=== PATIENT | female | born 1955 | race Caucasian/White ===

== ENCOUNTER 2023-05-27 16:30 | Inpatient (IN) | payer MEDICARE, SELFPAY ==
--- NOTE | ~2023-05-27 | XR_ITS ---
EXAM: XR knee RT min 4V DATE: 05/27/2023 22:20 HISTORY: right knee pain, fall . COMPARISON: None available. FINDINGS: Decreased mineralization. No fracture or dislocation. No lytic or blastic lesion. Moderate tricompartmental osteoarthritis. Quadriceps and patellar enthesopathy. No erosion or periosteal galeana ge. Soft tissues within normal limits. IMPRESSION: No acute osseous finding in the right knee. Reviewed, dictated and finalized at location K. GRITY ENGINEER
--- NOTE | ~2023-05-27 | MR_ITS ---
MRI of the brain Clinical History: Altered mental status Technique: Axial and sagittal T1-weighted images were acquired. These were followed by axial T2-weigh [place], diffusion weighted, gradient, and FLAIR images. Following intravenous administration of 20 cc Mu ltiHance gadolinium, T1-weighted fat-sat imaging was performed in the axial and coronal planes. Findings: No significant signal abnormality seen in the referring. No acute infarct, internal hemorrh age, or mass lesion. Ventricles and subarachnoid spaces are unremarkable. Orbits are unremarkable. Paranasal sinuses and m astoid air cells are clear. Major intracranial flow voids are intact. Sagittal midline structures are intact. No abnormal postcontrast enhancement identified. IMPRESSION: No significant abnormality seen. Reviewed, dictated and finalized at location . NESS PERFORMANCE ANALYST
--- NOTE | ~2023-05-27 | CT_ITS ---
EXAMINATION: CT brain wo con DATE: 05/27/2023 21:57 INDICATION: AMS . TECHNIQUE: Computed tomography (CT) of the head was performed without intravenous contrast. The mA wa s adjusted according to patient size. Iterative reconstruction technique was employed. The dose-lengt h product was 605.33 mGy-cm. COMPARISON: None. FINDINGS: No acute intracranial hemorrhage or extra-axial fluid collection. No hydrocephalus, mass, or herniation. No acute ischemic infarct. Unremarkable dural venous sinus attenuation. No acute osseous abnormality. The aerated spaces are clear. Atherosclerotic intracranial calcifications. IMPRESSION: No acute intracranial process. Reviewed, dictated and finalized at location K. TION WORKER
[2023-05-27 17:10] VITALS: BP 175/67; PULSE 80; RESP 16; TEMP 37; O2SAT 94
[2023-05-27 17:10] LABS: Glucose Point of Care 440 mg/dl (65-105)
[2023-05-27 19:11] VITALS: BP 147/78; PULSE 82; RESP 16; O2SAT 94
[2023-05-27 21:19] VITALS: BP 148/89; PULSE 85; RESP 24; O2SAT 98
[2023-05-27 21:35] LABS: Appearance Urine Clear (Clear); Basophils Percent Auto 0.4 % (0.2-1.2); Bilirubin Urine Negative (Negative); Blood Urine Negative (Negative); Color Urine Yellow (Yellow); Eosinophils Absolute Auto 0.1 K/mm3 (0-0.3); Eosinophils Percent Auto 1.5 % (0-4.4); Glucose Urine UA 3+ mg/dL (Negative); Hematocrit 43.1 % (37.0-47.0); Hemoglobin 14.4 g/dL (12.0-15.0); Immature Granulocyte Absolute 0.02 K/mm3 (0.00-0.031); Immature Granulocyte Percent A 0.2 % (0-0.5); Immature Platelet Fraction Pct 8.1 % (0.9-11.2); Ketones Urine Negative (Negative); Leukocyte Esterase Ur Negative LEU/UL (Negative); Lymphocytes Absolute Auto 2.57 K/mm3 (0.9-3.2); Lymphocytes Percent Auto 31.4 % (18.3-44.2); Mean Corpuscular HGB Conc 33.4 g/dl (32-36); Mean Corpuscular Hemoglobin 30.9 pg (26-34); Mean Corpuscular Volume 92.5 fl (80-100); Mean Platelet Volume 11.4 fl (7.4-10.4); Monocytes Absolute Auto 0.6 K/mm3 (0.1-0.6); Monocytes Percent Auto 7.6 % (2.6-8.5); Neutrophils Absolute Auto 4.8 K/mm3 (1.3-6.7); Neutrophils Percent Auto 58.9 % (45.5-73.1); Nitrate Urine Negative (Negative); Platelet Count Result 133 k/mm3 (150-375); Protein Urine Negative (Negative); Red Blood Count 4.66 M/mm3 (4.2-5.4); Red Cell Distribution Width 12.8 % (11.5-14.5); Specific Grav Ur 1.032 (1.001-1.035); Urobilinogen Urine 0.2 mg/dL (<2.0); White Blood Count 8.2 K/mm3 (4.5-10.0); pH Urine 5.5 (5.0-9.0)
[2023-05-27 21:39] LABS: Add Urine Microscopic? NO
[2023-05-27] MEDS: SODIUM CHLORIDE 0.9% IV 1,000 ML 999 ML IV CONT (21:39)
[2023-05-27 21:44] LABS: Alanine Aminotransferase 50 U/L (6-35); Albumin Level 4.2 g/dL (3.5-5.1); Alkaline Phosphatase 98 U/L (38-126); Anion Gap 8 mmol/L (8-16); Aspartate Amino Transferase 58 U/L (14-36); Blood Urea Nitrogen 13 mg/dL (7-17); Calcium 9.5 mg/dL (8.4-10.2); Carbon Dioxide 26 mmol/L (22-30); Chloride 99 mmol/L (98-107); Estimated CRCL calculation 132 ml/min; Estimated Glomerular Filt Rate > 60; Glucose 297 mg/dL (65-110); Magnesium 1.9 mg/dL (1.6-2.3); Potassium 4.3 mmol/L (3.4-5.0); Sodium 133 mmol/L (137-145)
[2023-05-27 21:48] LABS: Beta-Hydroxybutyrate/Acetoacetate 0.07 mmol/L (0.02-0.27)
--- NOTE | 2023-05-27 22:07 | ED.AMS ---
HPI - Altered Mental Status General Chief Complaint: Altered Mental Status <Krista Yoon PA-C - Last Filed: 05/28/23 01:54> Stated Complaint: high BS- altered <CHRIS Moura Last Filed: 05/28/23 01:54> Time Seen by Provider: 05/27/23 21:27 <CHRIS Moura Last Filed: 05/28/23 01:54> Source: patient and family <CHRIS Moura Last Filed: 05/28/23 01:54> Mode of arrival: wheelchair <CHRIS Moura Last Filed: 05/28/23 01:54> Limitations: no limitations <CHRIS Moura Last Filed: 05/28/23 01:54> History of Present Illness HPI narrative: This is a 68 year old female that presents to the ER for altered mental status. Daughters report they found her on the ground at her home. She was very confused. They called EMS who checked her blood sugar and it was very elevated. They sent her in for further evaluation. She is now back at her baseline. Reports right knee pain. Denies fever, chest pain, shortness of breath, abdominal pain, vomiting. <Krista Yoon PA-C - Last Filed: 05/28/23 01:54> Related Data Home Medications: Home Medications Medication Instructions Recorded Confirmed albuterol 90 mcg/actuation aerosol 90 mcg inhalation Q6H PRN 05/28/23 05/28/23 inhaler Shortness Of Breath cetirizine 10 mg tablet 10 mg PO DAILY PRN allergies 05/28/23 05/28/23 cyclobenzaprine 10 mg tablet 10 mg PO TID PRN muscle spasms 05/28/23 05/28/23 escitalopram oxalate 20 mg tablet 20 mg PO DAILY 05/28/23 05/28/23 fluticasone propionate 50 2 spray intranasal DAILY 05/28/23 05/28/23 mcg/actuation nasal spray,suspension insulin glargine 100 unit/mL (3 40 unit subcut QAM 05/28/23 05/28/23 mL) subcutaneous pen (Basaglar KwikPen U-100 Insulin) insulin lispro-aabc 100 unit/mL 10 unit subcut TIDWMEAL 05/28/23 05/28/23 subcutaneous pen (Lyumrodriguev KwgrabielPen U-100 Insulin) levothyroxine 50 mcg tablet 50 mcg PO DAILY 05/28/23 05/28/23 pravastatin 20 mg tablet 20 mg PO DAILY 05/28/23 05/28/23 zolpidem 10 mg tablet 10 mg PO HS PRN Sleep 05/28/23 05/28/23 <Krista Yoon PA-C - Last Filed: 05/28/23 01:54> Allergies/Adverse Reactions: Allergies Allergy/AdvReac Type Severity Reaction Status Date / Time codeine Allergy Unknown Hallucinati Verified 03/09/19 14:39 ons hydromorphone [From Dilaudid] Allergy Hallucinati Verified 05/28/23 02:05 ng losartan Allergy Swelling Verified 05/28/23 02:06 vancomycin Allergy Rash Verified 05/28/23 02:06 metformin AdvReac Diarrhea Verified 05/28/23 02:06 <Krista Yoon PA-C - Last Filed: 05/28/23 01:54> Review of Systems Review of Systems: CONSTITUTIONAL: Denies fever ENT: Denies rhinorrhea, congestion, sore throat CARDIOVASCULAR: Reports edema. Denies chest pain RESPIRATORY: Denies cough or dyspnea. GASTROINTESTINAL: Denies abdominal pain, nausea, vomiting GENITOURINARY: Reports dysuria MUSCULOSKELETAL: Reports joint pain and myalgia. Denies back pain NEUROLOGIC: Denies numbness, or weakness. <Krista Yoon PA-C - Last Filed: 05/28/23 01:54> All systems reviewed & are unremarkable except as noted in HPI and below <CHRIS Moura Last Filed: 05/28/23 01:54> [facility] Past Medical History Medical History: Medical History Dyslipidemia History of diabetes mellitus Hypothyroidism Morbid obesity with BMI of 40.0-44.9, adult Type 2 diabetes mellitus <CHRIS Moura Last Filed: 05/28/23 01:54> Surgical History Surgical History: Surgical History History of abdominal surgery hernia mesh in place and 2 surgeries for MRSA infection <Krista Yoon PA-C - Last Filed: 05/28/23 01:54> Family History Family History: Family History Mother Patient's mother is , Onset Age
[2023-05-27 22:15] LABS: Creatine Kinase 33 U/L (30-135)
[2023-05-27 22:37] VITALS: PULSE 68; RESP 18; O2SAT 97
[2023-05-27 22:40] LABS: Troponin I < 0.012 ng/mL (0.000-0.034)
[2023-05-27 22:41] LABS: Amphetamine Screen Urine Negative (Negative); Barbiturate Screen Urine Negative (Negative); Benzodiazepines Screen Urine Negative (Negative); Cannabinoid Screen Urine Negative (Negative); Cocaine Screen Urine Negative (Negative); Methadone Screen Urine Negative (Negative); Opiate Screen Urine Negative (Negative); Phencyclidine Screen Urine Negative (Negative)
[2023-05-27 22:42] LABS: Influenza A QL RT-PCR Negative (Negative); Influenza B QL RT-PCR Negative (Negative); RSV RNA, RT-PCR Negative (Negative); SARS-CoV-2 RNA PCR Negative (Negative)
[2023-05-27 23:00] VITALS: PULSE 71; RESP 22; O2SAT 100
[2023-05-27 23:12] VITALS: BP 161/78
[2023-05-28] VITALS (10 sets, daily range): BP systolic 125–154; BP diastolic 63–81; PULSE 53–93; RESP 16–23; TEMP 36.2–37; O2SAT 94–100; BMI 41.7
[2023-05-28 01:34] LABS: Glucose Point of Care 311 mg/dl (65-105)
--- NOTE | 2023-05-28 02:04 | ADMGEN ---
This patient, Nelida Judd, was admitted to [address] [place] [address] Room 331-02. Patient/family oriented to hospital policies and general routines including ID bracelet, bed and alarms, visiting hours, pain management, procedures, bathroom and other care routines, personal items, smoking policy, room service/diet, and visiting hours. Information on how to activate the Rapid Response Team has been discussed. Patient/Family are encouraged to report perceived risks to care and to ask questions if they do not understand what they are told or what they should do.
--- NOTE | 2023-05-28 06:00 | ECHO_ITS ---
Patient Info Name: Nelida Judd Age: 68 years : 1955 Gender: Female Ht: 70 in Wt: 288 lbs BSA: 2.60 m2 HR: 76 bpm BP: 154 / 80 mmHg Heart Rhythm: Sinus Rhythm Technical Quality: Good Exam Date: 05/28/2023 11:02 AM Exam Location: Echo Lab Patient Status: Outpatient Admit Date: 05/27/2023 Staff Ordering Physician: Krista Yoon PA-C Entry Specialist: Ingrid Fischer RDCS Attending Provider: Damon Flynn MD Referring Physician: Car BAJWA; Exam Type: CA echo doppler color flow Study Info Indications - AMS, POSSIBLE SYNCOPE Complete two-dimensional, color flow and Doppler transthoracic echocardiogram is performed. Summary 1. Complete two-dimensional, color flow and Doppler transthoracic echocardiogram is performed. 2. Left ventricular chamber dimension is normal. 3. Left ventricular systolic function is normal, estimated at 65-70%. 4. There is mildly increased left ventricular wall thickness. 5. The left ventricular diastolic function is grade I diastolic dysfunction. 6. Right ventricular systolic function is normal. 7. There is trace mitral valve regurgitation. 8. There is trace tricuspid valve regurgitation. 9. There is trivial pericardial effusion. Left Ventricle Left ventricular chamber dimension is normal. Left ventricular systolic function is normal, estimated at 65-70%. There is mildly increased left ventricular wall thickness. The left ventricular diastolic function is grade I diastolic dysfunction. Right Ventricle Right ventricular chamber dimension is normal. Right ventricular systolic function is normal. Left Atria Left atrial chamber dimension is normal. Right Atria Right atrial chamber dimension is normal. Atrial Septum Intact interatrial septum visualized by color flow imaging. Aortic Valve The aortic valve is probable trileaflet. There is no aortic valve stenosis. There is no aortic valve regurgitation. Pulmonic Valve Pulmonary valve is not well visualized. Mitral Valve There is trace mitral valve regurgitation. Tricuspid Valve There is trace tricuspid valve regurgitation. Pericardium/Pleural There is trivial pericardial effusion. Inferior Vena Cava Inferior vena cava is not well visualized. Aorta The aortic root size at the sinus of Valsalva is normal. Left Ventricular Outflow Tract Name Value Normal LVOT 2D LVOT Diameter 2.3 cm LVOT Doppler LVOT Peak Gradient 4 mmHg LVOT Mean Gradient 3 mmHg LVOT VTI 30 cm LVOT VTI/AV VTI Ratio 0.8 LVOT Stroke Volume 126 ml LVOT CO 8.9 l/min LVOT CI 3.4 l/min/m2 Pulmonic Valve Name Value Normal RVOT Doppler RVOT Peak Gradient 2 mmHg PV Doppler
[2023-05-28 08:26] LABS: Glucose Point of Care 327 mg/dl (65-105)
[2023-05-28] MEDS: INSULIN ASPART (*BKC) 100 UNITS/ML SUB-Q ×4 (08:32→20:57)
--- NOTE | 2023-05-28 08:52 | PM.IMHP ---
H&P: HPI History of Present Illness Date/Time: 05/28/23 08:52 Chief Complaint: altered mental status, resolved Narrative: This is a 68-year-old female patient history of insulin-dependent diabetes who was found down on the ground with altered mentation yesterday evening. The last thing patient can remember is around 1:30 in the afternoon Yesterday she went to take her dishes to the kitchen. The next thing she remembers is she is with healthcare team. EMS found blood sugar over 500 on evaluation. Patient was transported to the emergency department where her blood sugar was 470. She received IV fluids and an altered mental status workup. Patient returned to baseline mental status while in the ER but continued to have unsteady ambulation. CT of the brain was unremarkable. Labs revealed mild hyponatremia 133 and elevated glucose, which actually places sodium in normal range at 138 when corrected for glucose. UA remarkable only for urine glucose, UDS negative, viral panel negative. This morning patient reports that she has a headache and there is a small abrasion to the left mandaen area indicating that she had some minor head injury related to presumed syncopal episode. Uncertain if the altered mental status and gait abnormality were related to concussion or other process. on admission MRI was ordered of the brain. This too results unremarkable. Patient is ambulatory with steady gait at this time and aside from the headache feels back to her normal self. On review of systems patient reports that she has had chronic lower abdominal pain for years that is presumed related to mesh and scar tissue. 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 Patient reports that she has not been very compliant with her insulin until the last 3-4 weeks. However, she does not understand why her glucose was over 500 at home. Otherwise prior to event patient stated that she felt completely normal and well. No recent illnesses. No dysuria. No fever chills. No chest pain or shortness of breath. Review of Systems Review of Systems: All systems reviewed & are unremarkable except as noted in HPI and below PMFSH Past Medical History Medical History Dyslipidemia History of diabetes mellitus Hypothyroidism Morbid obesity with BMI of 40.0-44.9, adult Type 2 diabetes mellitus Surgical History Surgical History History of abdominal surgery hernia mesh in place and 2 surgeries for MRSA infection Family History Family History Mother Patient's mother is , Onset Age: 83 Family history of atrial fibrillation Father Patient's father is , Onset Age: 56 Carcinoma of colon Other Diabetes mellitus Social History Social History Smoking status: Never smoker Alcohol intake: never Substance use: never Substance use type: does not use Lack of Transportation: No Lack of Food: Never True Current Housing: I Have Housing Concerned About Future Housing: No Difficulty Paying Gas/Electric Bills: No Difficulty Paying for Meds: No Currently Unemployed: No Education: High School Diploma/GED Difficulty w/ Childcare or Family Care: No Spiritual care concerns: No Meds Home Medications and Allergies Home Medications Medication Instructions Recorded Confirmed Type albuterol 90 mcg/actuation aerosol 90 mcg inhalation Q6H PRN 05/28/23 05/28/23 History inhaler Shortness Of Breath cetirizine 10 mg tablet 10 mg PO DAILY PRN allergies 05/28/23 05/28/23 History cyclobenzaprine 10 mg tablet 10 mg PO TID PRN muscle spasms 05/28/23 05/28/23 History escitalopram oxalate 20 mg tablet 20 mg PO DAILY 05/28/23 05/28/23 History fluticasone propionate 50 2 spra
[2023-05-28] MEDS: PRAVASTATIN SODIUM 20 MG TABLET PO (09:28)
[2023-05-28] MEDS: ESCITALOPRAM OXALATE 10 MG TABLET 20 MG PO (09:31)
[2023-05-28] MEDS: LEVOTHYROXINE SODIUM 50 MCG TABLET PO (09:31)
[2023-05-28] MEDS: FLUTICASONE PROPIONATE 0.05% NA SPR 16 GM BTL (*BKC) 2 SPRAY NASAL (09:32)
[2023-05-28] MEDS: INSULIN GLARGINE (*BKC) 100 UNITS/ML 40 UNITS SUB-Q (09:33)
--- NOTE | 2023-05-28 09:59 | ECG_ITS ---
Measurements Intervals [place] Rate: 82 P: 77 IN: 177 QRS: 29 QRSD: 144 T: -22 QT: 422 QTc: 495 Interpretive Statements SINUS RHYTHM RIGHT BUNDLE BRANCH BLOCK [120+ ms QRS DURATION, UPRIGHT V1, 40+ ms S IN I/aVL/V4/V5/V6] MODERATE T-WAVE ABNORMALITY, CONSIDER LATERAL ISCHEMIA [-0.1+ mV T WAVE IN I/aVL/V5/V6] NO PREVIOUS ECG AVAILABLE FOR COMPARISON Electronically Signed On 05-28-2023 19:12:07 [employer] FLORIST by Cadence Gipson M.D.
[2023-05-28 10:50] LABS: Hemoglobin A1C 9.8 % (<5.7)
[2023-05-28 11:37] LABS: Alanine Aminotransferase 43 U/L (6-35); Albumin Level 3.5 g/dL (3.5-5.1); Alkaline Phosphatase 90 U/L (38-126); Anion Gap 4 mmol/L (8-16); Aspartate Amino Transferase 54 U/L (14-36); Bilirubin,Total 0.8 mg/dL (0.2-1.3); Blood Urea Nitrogen 13 mg/dL (7-17); Calcium 9.1 mg/dL (8.4-10.2); Carbon Dioxide 31 mmol/L (22-30); Chloride 101 mmol/L (98-107); Creatine Kinase 22 U/L (30-135); Estimated CRCL calculation 100 ml/min; Estimated Glomerular Filt Rate > 60; Glucose 337 mg/dL (65-110); Magnesium 1.8 mg/dL (1.6-2.3); Potassium 4.7 mmol/L (3.4-5.0); Sodium 136 mmol/L (137-145)
[2023-05-28] MEDS: ACETAMINOPHEN 500 MG TABLET 1000 MG PO ×2 (11:43→20:57)
[2023-05-28 11:48] LABS: Troponin I < 0.012 ng/mL (0.000-0.034)
[2023-05-28 12:10] LABS: Glucose Point of Care 308 mg/dl (65-105)
[2023-05-28 14:50] LABS: Glucose Point of Care 338 mg/dl (65-105)
[2023-05-28 17:21] LABS: Glucose Point of Care 277 mg/dl (65-105)
[2023-05-28] MEDS: INSULIN ASPART (*BKC) 100 UNITS/ML 10 UNITS SUB-Q (17:35)
[2023-05-28] MEDS: LACTATED RINGERS 1,000 ML 100 ML IV CONT (17:36)
[2023-05-28 21:05] LABS: Glucose Point of Care 220 mg/dl (65-105)
[2023-05-29] VITALS: PULSE 68
[2023-05-29 04:00] VITALS: PULSE 68
[2023-05-29 04:45] VITALS: BP 119/49; PULSE 65; RESP 20; TEMP 36.3; O2SAT 94
[2023-05-29] MEDS: LEVOTHYROXINE SODIUM 50 MCG TABLET PO (05:39)
[2023-05-29 07:03] LABS: Basophils Percent Auto 0.4 % (0.2-1.2); Eosinophils Absolute Auto 0.2 K/mm3 (0-0.3); Eosinophils Percent Auto 2.8 % (0-4.4); Hematocrit 37.8 % (37.0-47.0); Hemoglobin 12.3 g/dL (12.0-15.0); Immature Granulocyte Absolute 0.02 K/mm3 (0.00-0.031); Immature Granulocyte Percent A 0.3 % (0-0.5); Immature Platelet Fraction Pct 11.1 % (0.9-11.2); Lymphocytes Percent Auto 48.1 % (18.3-44.2); Mean Corpuscular HGB Conc 32.5 g/dl (32-36); Mean Corpuscular Hemoglobin 31.1 pg (26-34); Mean Corpuscular Volume 95.5 fl (80-100); Mean Platelet Volume 12.2 fl (7.4-10.4); Monocytes Absolute Auto 0.4 K/mm3 (0.1-0.6); Monocytes Percent Auto 5.9 % (2.6-8.5); Neutrophils Absolute Auto 3.1 K/mm3 (1.3-6.7); Neutrophils Percent Auto 42.5 % (45.5-73.1); Platelet Count Result 91 k/mm3 (150-375); Red Blood Count 3.96 M/mm3 (4.2-5.4); Red Cell Distribution Width 12.7 % (11.5-14.5); White Blood Count 7.3 K/mm3 (4.5-10.0)
[2023-05-29 07:24] LABS: Chloride 104 mmol/L (98-107)
[2023-05-29 07:32] LABS: Alanine Aminotransferase 40 U/L (6-35); Albumin Level 3.1 g/dL (3.5-5.1); Alkaline Phosphatase 81 U/L (38-126); Anion Gap 6 mmol/L (8-16); Aspartate Amino Transferase 46 U/L (14-36); Blood Urea Nitrogen 13 mg/dL (7-17); Calcium 8.4 mg/dL (8.4-10.2); Carbon Dioxide 26 mmol/L (22-30); Estimated CRCL calculation 164 ml/min; Estimated Glomerular Filt Rate > 60; Glucose 145 mg/dL (65-110); Potassium 3.7 mmol/L (3.4-5.0); Sodium 136 mmol/L (137-145)
[2023-05-29 07:49] LABS: Glucose Point of Care 170 mg/dl (65-105)
[2023-05-29 08:00] VITALS: PULSE 75
[2023-05-29] MEDS: ESCITALOPRAM OXALATE 10 MG TABLET 20 MG PO (09:40)
[2023-05-29] MEDS: PRAVASTATIN SODIUM 20 MG TABLET PO (09:41)
[2023-05-29] MEDS: INSULIN ASPART (*BKC) 100 UNITS/ML 10 UNITS SUB-Q ×2 (09:44→13:04)
[2023-05-29] MEDS: INSULIN GLARGINE (*BKC) 100 UNITS/ML 40 UNITS SUB-Q (09:45)
[2023-05-29] MEDS: FLUTICASONE PROPIONATE 0.05% NA SPR 16 GM BTL (*BKC) 2 SPRAY NASAL (09:47)
[2023-05-29 10:50] VITALS: BMI 41.9
[2023-05-29 11:41] LABS: Glucose Point of Care 230 mg/dl (65-105)
[2023-05-29 12:00] VITALS: PULSE 65
--- NOTE | 2023-05-29 12:15 | PM.DS ---
DS: Admitting Diagnosis Discharge Date 05/29/2023 Admitting Diagnosis transient altered awareness, type 2 diabetes mellitus, hypothyroidism, concussion DS: Discharge Diagnosis Discharge Diagnosis (1) Altered awareness, transient: Code(s): R40.4 - Transient alteration of awareness Status: Acute (2) Concussion: Code(s): S06.0XAA - Concussion with loss of consciousness status unknown, initial encounter Status: Acute (3) Type 2 diabetes mellitus: Qualifiers: Diabetes mellitus oysterman insulin use: with usp use Diabetes mellitus complication status: with hyperglycemia Qualified Code(s): E11.65 - Type 2 diabetes mellitus with hyperglycemia; Z79.4 - extermination supervisor (current) use of insulin Code(s): E11.9 - Type 2 diabetes mellitus without complications Status: Acute (4) Hypothyroidism: Code(s): E03.9 - Hypothyroidism, unspecified Status: Chronic DS: Summary Hospital Course Reason for hospitalization: altered mental status, hyperglycemia Hospital Course: 05/28: This is a 68-year-old female patient history of insulin-dependent diabetes who was found down on the ground with altered mentation yesterday evening.? The last thing patient can remember is around 1:30 in the afternoon ? Yesterday she went to take her dishes to the kitchen.? The next thing she remembers is she is with healthcare team.? EMS found blood sugar over 500 on evaluation.? Patient was transported to the emergency department where her blood sugar was 470.? She received IV fluids and an altered mental status workup.? Patient returned to baseline mental status while in the ER but continued to have unsteady ambulation.? CT of the brain was unremarkable.? Labs revealed mild hyponatremia 133 and elevated glucose, which actually places sodium in normal range at 138 when corrected for glucose. UA remarkable only for urine glucose, UDS negative, viral panel negative.? This morning patient reports that she has a headache and there is a small abrasion to the left sabianist area indicating that she had some minor head injury related to presumed syncopal episode.? Uncertain if the altered mental status and gait abnormality were related to concussion or other process. on admission MRI was ordered of the brain.? This too results unremarkable.? Patient is ambulatory with steady gait at this time and aside from the headache feels back to her normal self.? On review of systems patient reports that she has had chronic lower abdominal pain for years that is presumed related to mesh and scar tissue.? 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 Patient reports that she has not been very compliant with her insulin until the last 3-4 weeks.? However, she does not understand why her glucose was over 500 at home.? Otherwise prior to event patient stated that she felt completely normal and well.? No recent illnesses.? No dysuria.? No fever chills.? No chest pain or shortness of breath. 05/29: patient refused home healthcare being established, refused perinatal educator and refused PT/OT. Patient back to normal mental status. She had no ongoing complaints. Her hyperglycemia had improved dramatically. Patient has long-acting and short-acting insulin along with dosing instructions for home. Echocardiogram was completed with normal ejection fraction mild left ventricular wall thickness and grade 1 diastolic dysfunction, trace mitral valve regurgitation trace tricuspid valve regurgitation and trivial pericardial effusion none of which would explain her altered mental status. Suspect that this was related to concussion. Status at Discharge Cognitive/behavioral status at discharge: Awake alert oriented Functional status at discharge: independent ambulation Overall status at discharge: patient is back to baseline Time Spent with Patient Time attestation: Total time spent providing and/or coordinating discharge ser
[2023-05-29] MEDS: INSULIN ASPART (*BKC) 100 UNITS/ML SUB-Q (13:02)
[2023-05-29 14:00] VITALS: BP 137/67; PULSE 78; RESP 16; TEMP 36.6; O2SAT 96
--- NOTE | 2023-05-29 16:58 | PC.NURSE ---
Pt was being prepared for discharge with IV and tele removal. Pharmacy verified. Before, this RN and orientee could discuss discharge paperwork with pt, pt's ride arrived and she left. This RN called pt cellphone and spoke with caregiver. Then pt called back to floor and this RN spoke with her regarding discharge instructions. Family came up to 3[facility] and picked up discharge packet. Advised family/pt to call if they had any additional questions or concerns.
== END 2023-05-29 15:05 | disposition home or self-care (01) | DRG 89 ==
LOC: ANHED 22:22 → ANH3MEDSUR 05-28 00:19
PROVIDERS: Admitting Provider Internal Medicine; Emergency Provider Physician Assistant; Visit Provider Nurse Practitioner
DX: S06.0XAA Concussion with loss of consciousness status unknown, initial encounter (principal); E87.1 Hypo-osmolality and hyponatremia; Z68.41 Body mass index [BMI] 40.0-44.9, adult; R55 Syncope and collapse; E11.65 Type 2 diabetes mellitus with hyperglycemia; E03.9 Hypothyroidism, unspecified; E78.5 Hyperlipidemia, unspecified; E66.01 Morbid (severe) obesity due to excess calories; S00.81XA Abrasion of other part of head, initial encounter; W19.XXXA Unspecified fall, initial encounter; Z20.822 Contact with and (suspected) exposure to COVID-19; Z79.4 Long term (current) use of insulin
CPT/HCPCS: 36415; 70450; 70553; 73564; 80053; 80307; 81003; 82010; 82550; 82948; 83036; 83735; 84100; 84443; 84484; 85025; 85055; 87637; 93005; 93306; 96360; 96361; 99285; A9270; A9577; G0378; J1815; J7030; J7120

== ENCOUNTER 2024-10-13 15:50 | Emergency (ER) | payer MEDICARE, SELFPAY ==
--- NOTE | ~2024-10-13 | XR_ITS ---
3 VIEWS NASAL BONES Ordering provider: Debbi Ramirez NP History: . fall . Comparison: None. FINDINGS: Nasal bone fractures. The nasal septum is slightly deviated to the right. Soft tissues are normal. IMPRESSION: Nasal bone fractures. Reviewed, dictated and finalized at location A. IMPRESSION: Nasal bone fractures.
[2024-10-13 16:08] VITALS: BP 143/60; PULSE 78; RESP 20; TEMP 36.3; O2SAT 96
--- NOTE | 2024-10-13 16:42 | ED_ITS ---
HPI - Fall General Chief Complaint: Fall Stated Complaint: fall Time Seen by Provider: 10/13/24 16:30 Source: patient Mode of arrival: ambulatory Limitations: no limitations History of Present Illness HPI Narrative: 69 year old female accompanied by grand daughter with complaints of injury to her nose from injury she sustained when she was trying to move trash can out of the way so family could mow. Patient reports that she tripped while pushing can and hit her nose on edge of trash can and then fell in the grass. Patient reports that she did have bloody nose after incident denies any LOC at time of injury. Patient has redness and swelling to her nose with small abrasion noted at bridge of her nose with no acute bleeding noted. Patient reports that she does not have any other noted injuries and takes no daily blood thinners. MD complaint: fall Onset (ago): hour(s) (within prior hour before arrival) Fall from: standing Place fall occurred: home Loss of consciousness: none Symptoms prior to fall: none Location of injury: face Severity scale (1-10): 10 Quality: throbbing (nose) Associated symptoms (after fall): other (bloody nose) Related Data Home Medications ?Medication ?Instructions ?Recorded ?Confirmed ?Last Taken ?Type albuterol 90 mcg/actuation aerosol 90 mcg inhalation Q6H PRN 05/28/23 05/28/23 Unknown History inhaler Shortness Of Breath cetirizine 10 mg tablet 10 mg PO DAILY PRN allergies 05/28/23 05/28/23 Unknown History escitalopram oxalate 20 mg tablet 20 mg PO DAILY 05/28/23 05/28/23 05/27/23 History fluticasone propionate 50 2 spray intranasal DAILY 05/28/23 05/28/23 05/27/23 History mcg/actuation nasal spray,suspension insulin glargine 100 unit/mL (3 40 unit subcut QAM 05/28/23 05/28/23 Unknown History mL) subcutaneous pen (Basaglar KwikPen U-100 Insulin) insulin lispro-aabc 100 unit/mL 10 unit subcut TIDWMEAL 05/28/23 05/28/23 05/27/23 History subcutaneous pen (Lyumjev KwikPen U-100 Insulin) levothyroxine 50 mcg tablet 50 mcg PO DAILY 05/28/23 05/28/23 05/27/23 History pravastatin 20 mg tablet 20 mg PO DAILY 05/28/23 05/28/23 05/27/23 History zolpidem 10 mg tablet 10 mg PO HS PRN Sleep 05/28/23 05/28/23 Unknown History Allergies Allergy/AdvReac Type Severity Reaction Status Date / Time codeine Allergy Unknown Hallucinati Verified 10/13/24 16:43 ons hydromorphone (From Dilaudid) Allergy Hallucinati Verified 10/13/24 16:43 ng losartan Allergy Swelling Verified 10/13/24 16:43 vancomycin Allergy Rash Verified 10/13/24 16:43 metformin AdvReac Diarrhea Verified 10/13/24 16:43 Review of Systems Review of Systems: CONSTITUTIONAL: Denies fever, chills, or sweats. EYES: Denies visual changes, redness, or discharge. ENT: Reports some rhinorrhea, and feelings of congestion in nose with swelling and pain to her nose, no sore throat, or otalgia. CARDIOVASCULAR: Denies chest pain, palpitations, or edema. RESPIRATORY: Denies cough or dyspnea. GASTROINTESTINAL: Denies abdominal pain, nausea, vomiting, or diarrhea. GENITOURINARY: Denies dysuria or hematuria. SKIN: Denies rash or itching.small abrasion to bridge of nose MUSCULOSKELETAL: Denies back pain, joint pain, or myalgia. NEUROLOGIC: Denies headache, numbness, or weakness. PSYCHIATRIC: Report history of anxiety or depression. All systems reviewed & are unremarkable except as noted in HPI and below PMFSH Past Medical History Medical History Dyslipidemia History of diabetes mellitus Hypothyroidism Morbid obesity with BMI of 40.0-44.9, adult Type 2 diabetes mellitus Surgical History Surgical History History of abdominal surgery hernia mesh in place and 2 surgeries for MRSA infection Family History Family History Mother Patient's mother is , Onset Age: 83 Family history of atrial fibrillation Father Patient's father is , Onset Age: 56 Carcinoma of colon Other Diabetes mellitus Social History Social History Smoking status: Never smoker Alcohol intake: never Substance use: never Substance use type: does not use Do You Feel Safe in your Home?: Yes Lack of Transportation: No Lack of Food: Never True Current Housing: I Have Housing Concerned About Future Housing: No Difficulty Paying Gas/Electric Bills: No Difficulty Paying for Meds: No Currently Unemployed: No Education: High School Diploma/GED Difficulty w/ Childcare or Family Care: No Spiritual care concerns: No Comments At time of signature, agree with nursing past medical, surgical, social and family history. There is no relevant family history pertinent to the presenting complaint Exam Narrative: GENERAL: Well-appearing, well-nourished, obese and in no acute distress. HEAD: Normocephalic, atraumatic. EYES: PERRLA and EOMI. some faint bruising to eyelid noted no sharp pain to eyes or any change in vision ENT: Nares clear, clear rhinorrhea no present epistaxis reports did have bloody nose after incident. Mucous membranes moist.TM's normal throat pink with no swelling. Swelling and some redness to nose with pain NECK: Supple.no lymphadenopathy CHEST: Clear to auscultation. No respiratory distress. no cough noted SAO2 96% on room air HEART: Regular rate and rhythm. No murmur heard. Normal peripheral pulses. ABDOMEN: Soft, nontender, nondistended, normal active bowel sounds. EXTREMITIES: Normal range of motion. No edema. SKIN: Warm, dry, no rash.small abrasion to the bridge of nose some bruising noted to eyelids NEURO: No focal deficits. Alert and oriented x3. denies any LOC at time of injury Course Course Emergency Course: Patient is aware of diagnosis, understands and agrees to treatment plan.? Anticipatory guidance given.? Patient agrees to follow-up as directed and is aware of reasons to seek care at the emergency department. Portions of this record may have been created with voice recognition software Level of Care: Express Care Visit Vital Signs Vital signs: Vital Signs Temperature 36.3 C L 10/13/24 16:08 Pulse Rate 78 10/13/24 16:08 Respiratory Rate 20 10/13/24 16:08 Blood Pressure 143/60 H 10/13/24 16:08 Pulse Oximetry 96 10/13/24 16:08 Oxygen Delivery Room Air 10/13/24 16:08 Temperature 36.3 C L 10/13/24 16:08 Pulse Rate 78 10/13/24 16:08 Respiratory Rate 20 10/13/24 16:08 Blood Pressure 143/60 H 10/13/24 16:08 Pulse Oximetry 96 10/13/24 16:08 Oxygen Delivery Room Air 10/13/24 16:08 Reviewed MDM - Fall Differential Diagnosis Differential diagnosis: Likely other (facial contusion, nasal contusion, nasal fracture, fall hitting nose) Medical Records Attestation: I reviewed the patient's medical records. Imaging Data Attestation: I personally reviewed and interpreted this imaging study as foll ows: My impression: nasal bone fracture, septum deviated slightly to right, soft tissues normal Radiologist's impression: [facility] [address] [place] [id number] XRay Report Signed Patient: Nelida Judd : 1955 MR#: [id number] Age: 69 Acct:[id number] Loc: [facility] ADM Date: 10/13/24Attending Dr: Ordering Physician: Debbi Ramirez APRN Date of Service: 10/13/24 Procedure(s): XR nasal bones min 3V Accession Number(s): [id number] cc: Asiya, Haris LOMELI; Debbi Ramirez APRN~ 3 VIEWS NASAL BONES Ordering provider: Debbi Ramirez NP History: . fall . Comparison: None. FINDINGS: Nasal bone fractures. The nasal septum is slightly deviated to the right. Soft tissues are normal. IMPRESSION: Nasal bone fractures. Reviewed, dictated and finalized at location A. Please be advised this is a medical document. It is intended for [id number] communication. It is written in medical language and may contain unfamiliar abbreviations or verbiage. Medical documents are intended to carry relevant information, facts as evident, and the clinical opinion of the practitioner at the time of the encounter. This report may have been done utilizing a voice recognition system. Attempts have been made to correct errors. However, there may be uncorrected grammatical, spelling, and recognition errors present. The file time of this note does not necessarily represent the time of service. Dictated By: Erasmo Vazuqez MD 10/13/24 1712 Signed By: <Electronically signed by Erasmo Vazquez MD in OV> Critical Care Time Critical Care Time Critical Care Time: No Discharge Plan Discharge Clinical Impression: Facial bruising Qualifiers: Encounter type: initial encounter Qualified Code(s): S00.83XA - Contusion of other part of head, initial encounter Fracture, nasal Qualifiers: Encounter type: initial encounter Fracture type: closed Qualified Code(s): S02.2XXA - Fracture of nasal bones, initial encounter for closed fracture Patient Disposition: Home Condition: Stable Instructions: Antibiotic Form, Nasal Fracture (ED) Additional Instructions: apply bacitracin ointment to abrasion on bridge of nose. watch for any infection--redness, swelling, drainage from abrasion on nose Tylenol or Ibuprofen for any fever or pain follow up with PCP in 7-10 days for a wound check recheck if develop fever, chills, increasing symptom Go to the ER if your symptoms become worse of if ANY new symptoms develop Ice to facial area 20 minutes Follow up with your PCP in 7-10 days if follow up needed PCP can refer to ENT If your symptoms persist, change or worsen significantly before you can contact your personal physician then please, without delay, go to the emergency department for further evaluation. Follow-up with PCP in 7-10 days or sooner if needed Follow up with PCP soon in regards to your blood pressure which is elevated above threshold for referral. Blood pressure above 120/80 may indicate pre- hypertension. Patient Language: Lao Prescriptions: No Action cetirizine 10 mg tablet 10 mg PO DAILY PRN (Reason: allergies) levothyroxine 50 mcg tablet 50 mcg PO DAILY pravastatin 20 mg tablet 20 mg PO DAILY albuterol 90 mcg/actuation Aerosol 90 mcg INHALATION Q6H PRN (Reason: Shortness Of Breath) Rx Instructions: 2 puffs zolpidem 10 mg tablet 10 mg PO HS PRN (Reason: Sleep) fluticasone propionate 50 mcg/actuation [place],Suspension 2 spray INTRANASAL DAILY escitalopram oxalate 20 mg tablet 20 mg PO DAILY Lyumjev KwikPen U-100 Insulin 100 unit/mL insulin pen 10 unit SUBCUT TIDWMEAL insulin glargine [Basaglar KwikPen U-100 Insulin] 100 unit/mL (3 mL) Insulin Pen 40 unit SUBCUT QAM acetaminophen 500 mg Tablet 1,000 mg PO Q6H PRN (Reason: Pain Or Fever) Qty: 0 0RF Follow-up/Referrals: Asiya,MD Haris [Primary Care Provider] - Time of Disposition: 17:39 Quality [place] Coma Scale Eyes: Open Verbal: Oriented and Alert Motor: Follows Commands [place] Coma Total Score: 15
--- OUTSIDE RECORDS SUMMARY | 2024-10-13 17:03 | XMS_ITS | Clinical Summary ---
Author Organization [facility] Address [address] [place] [address] Care Team Providers Care Bottom Steep Tender Name Role Phone Michael Bedoya MD Unavailable [phone] Jag Andres MD Unavailable [phone] Berenice Rowan MD Unavailable Brandee Ahn NP Primary Care Provider [phone] Allergies Active Allergy Reactions Criticality Noted Date Comments Codeine Hallucinations Medium Hydromorphone Hallucinations Medium 03/22/2018 Hydromorphone Hcl Hallucinations Medium 03/07/2021 Losartan Swelling,Vision changes,Dizziness Medium 09/15/2022 Metformin Diarrhea Low 06/18/2022 Vancomycin Itching,Redness,Rash Medium 03/25/2018 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 Medications albuterol HFA (PROVENTIL HFA,VENTOLIN HFA,PROAIR HFA) 90 mcg/actuation inhaler Inhale 2 puffs every 6 (six) hours as needed for wheezing 1 each 1 2 Active fluticasone propionate (FLONASE) 50 mcg/actuation nasal sprayIndications :Acute recurrent pansinusitis Administer 2 sprays into each nostril daily 3 each 4 2 Active blood glucose diagnostic (glucose blood) stripIndications :Type 2 diabetes mellitus with hyperglycemia, without long-term current use of insulin ([facility]) Check blood sugar 3x times a day E11.65 100 each 5 3 Active blood-glucose meter kitIndications:T ype 2 diabetes mellitus with hyperglycemia, without long-term current use of insulin ([facility]) Use to test blood sugars 3 times daily e11.65 1 kit 1 3 Active pen needle, diabetic (1st Tier Unifine Pentips Plus) 31 gauge x 3/16 needleIndication s:Type 2 diabetes mellitus with hyperglycemia, without long-term current use of insulin ([facility]) USE TO INJECT insulin 4 TIMES A DAY e11.65 300 each 3 3 Active QUEtiapine (SEROquel) 25 mg tabletIndication s:Psychophysiolo gical insomnia Take 1-2 tablets (25-50 mg total) by mouth nightly 180 tablet 4 025 Active cetirizine (ZyrTEC) 10 mg tabletIndication s:Allergic rhinitis, unspecified seasonality, unspecified trigger Take 1 tablet (10 mg total) by mouth daily as needed for allergies 90 tablet 4 4 025 Active ALPRAZolam (XANAX) 0.25 mg tabletIndication s:Insomnia Take 1 tablet (0.25 mg total) by mouth nightly as needed for anxiety 30 tablet 4 Active cyclobenzaprine (FLEXERIL) 10 mg tabletIndication s:Muscle spasm of back Take 1 tablet (10 mg total) by mouth 3 (three) times a day as needed for muscle spasms 270 tablet 1 5 025 Active levothyroxine (SYNTHROID) 50 mcg tabletIndication s:Hypothyroidism , unspecified type Take 1 tablet (50 mcg total) by mouth daily 90 tablet 3 5 026 Active pravastatin (PRAVACHOL) 20 mg tabletIndication s:Dyslipidemia associated with type 2 diabetes mellitus (HCC) Take 1 tablet (20 mg total) by mouth daily 90 tablet 3 5 Active naloxone (NARCAN) 4 mg/actuation spray,non-aeroso l Administer 1 spray into affected nostril(s) as needed for opioid reversal or respiratory depression Call 911. Administer a single spray in one nostril. Repeat every 3 minutes as needed if no or minimal response. 2 each 5 Active Additional Information Patient not taking.Reported on 10/08/2024 escitalopram (LEXAPRO) 20 mg tabletIndication s:Moderate episode of recurrent major depressive disorder (HCC) Take 1 tablet (20 mg total) by mouth daily 90 tablet 1 5 Active Additional Information Patient not taking.Reported on 10/08/2024 insulin glargine (BASAGLAR) 100 unit/mL (3 mL) pen for injectionIndicat ions:Type 2 diabetes mellitus with hyperglycemia, without long-term current use of insulin (HCC) Inject 30 Units under the skin daily 30 mL 4 5 Active insulin lispro-aabc (LYUMJEV) 100 unit/mL pen for injection Inject 10 Units under the skin 3 (three) times a day before meals 30 mL 4 5 Active amoxicillin-clav ulanate (AUGMENTIN) 875-125 mg per tabletIndication s:Acute bacterial sinusitis Take 1 tablet by mouth 2 (two) times a day for 10 days 20 tablet 5 025 Active oxyCODONE (ROXICODONE) 5 mg immediate release tablet Take 1 tablet (5 mg total) by mouth every 4 (four) hours as needed for pain 30 tablet 5 025 Active Problems Problem Noted Date Diagnosed Date Moderate episode of recurrent major depressive d isorder 05/17/2024 Assessment & Plan (05/17/2024 11:07 AM RETAIL STOCK CLERK): Moods well controlled and stable. Will continue on Seroquel and Lexapro. Will continue to monitor. Interstitial cystitis 01/11/2024 Assessment & Plan (01/11/2024 1:50 PM CDT): Seeing urology at [facility] Having bladder intillations Syncope and collapse 06/03/2023 Assessment & Plan (06/03/2023 3:23 PM RETAIL STOCK CLERK): Found unresponsive on 05/27 where her blood glucose was 501. Transferred to [place] where she spend 2 nights Appt with endo on 07/08 to discuss continuous glucose monitor Followed by endo-currently on Lyumjev and Basaglar Muscle spasm of back 05/05/2023 Assessment & Plan (05/17/2024 11:07 AM RETAIL STOCK CLERK): Will continue with Cyclobenzaprine PRN. Reports spasm the other day that wrapped around to chest when walking up slight incline. Will continue to monitor and discussed red flags and when to go to ER and RTC. Assessment & Plan (01/11/2024 1:51 PM CDT): Chronic, generally well controlled Flexeril 10 mg as needed COVID-19 01/10/2022 Assessment & Plan (01/10/2022 12:45 PM CDT): VS stable, no acute distress. Symptoms improving. Completing paxlovid, has 2 more days. Discussed symptomatic treatment, acetaminophen, nasal irrigation. Encouraged continued use of albuterol inhaler as needed. Will notify office for any new/worsening symptoms. Reviewed red flags warranting ER evaluation. Encounter for osteoporosis s creening in asymptomatic postmenopausal patient 10/11/2021 Assessment & Plan (10/11/2021 11:37 AM CDT): Call to schedule dexa. Assessment & Plan (10/11/2021 9:16 AM CDT): Patient is outstanding order for DEXA scan, aware to call and schedule testing. Medicare annual wellness visit, subsequent 10/11 Assessment & Plan (05/17/2024 11:06 AM RETAIL STOCK CLERK): In regard to health maintenance, Colonoscopy- Declined Mammogram- Declined DEXA- UTD DM-annual visual examination and podiatry visits every 3 months advised. Influenza vaccine- Declined Pneumococcal vaccine- Declined Shingrix vaccine- Declined ASCVD risk: 13.8% Eat a healthy diet: focus on lean meats and proteins, more fruits, vegetables and whole grains and low in sugars and fats. Limit red meat and avoid processed meat. Maintain a healthy weight; avoid being overweight. Aim for a normal body mass index (BMI) of 18.5-24.9. Help learning to eat healthier, we can set up appointment with desk director/rn palliative care. Have an active lifestyle, strive for 30 minutes of moderate exercise 5 times a week and strength or resistance training at least twice a week. Use broad-spectrum (UVA+UVB) sunscreen with SPF 30 or greater, is water resistant, limit time spent in the sun (10 am-4pm), wear hat, wear UV protective clothing, wear sunglasses. Never use a tanning bed. Skin that was irradiated may be more sensitive over your lifetime. Limit alcohol intake, 1 drink per day for a woman and 2 drinks per day for a man. Assessment & Plan (10/11/2021 9:16 AM CDT): Patient has outstanding order for mammogram, aware to call and schedule testing. Acute pansinusitis 10/11/2021 Assessment & Plan (10/11/2021 1:07 PM CDT): Will treat with abx. Encouraged and discussed use of sinus irrigation with patient. Continue antihistamine. Follow up if no improvement in 2 weeks. Assessment & Plan (10/11/2021 11:39 AM CDT): Complete medication as prescribed. Encouraged use of nasal irrigation (abelino med sinus rinse) using distilled water only. Hyperlipidemia associated with type 2 diabetes eneida eduardo 07/11/2021 Assessment & Plan (06/09/2024 1:14 PM RETAIL STOCK CLERK): This is a chronic condition which is not at goal . Goal is LDL less than 70 Continue pravastatin Encouraged to eat healthy, include fresh fruits and vegetables daily and avoid eating fried foods more than once per week. Assessment & Plan (05/17/2024 11:04 AM RETAIL STOCK CLERK): Lipid panel stable and will continue to monitor. Will continue on Pravastatin. Assessment & Plan (02/24/2024 4:12 PM CDT): This is a chronic condition which is not at goal . Goal is LDL less than 70 Continue pravastatin Encouraged to eat healthy, include fresh fruits and vegetables daily and avoid eating fried foods more than once per week. Assessment & Plan (10/22/2023 4:32 PM CDT): This is a chronic condition which is not at goal . Goal is LDL less than 70 Continue pravastatin. Encouraged to eat healthy, include fresh fruits and vegetables daily and avoid eating fried foods more than once per week. Encouraged to take medications as prescribed. Assessment & Plan (07/08/2023 4:47 PM RETAIL STOCK CLERK): This is a chronic condition which is not at goal of LDL less than 70 Continue pravastatin Encouraged to eat healthy, include fresh fruits and vegetables daily and avoid eating fried foods more than once per week. Encouraged to take medications as prescribed. Assessment & Plan (04/29/2023 3:27 PM RETAIL STOCK CLERK): This is a chronic condition which is not at goal of LDL less than 70 not on statin therapy- patient stopped pravastatin. Encouraged to eat healthy, include fresh fruits and vegetables daily and avoid eating fried foods more than once per week. Encouraged to take medications as prescribed. Assessment & Plan (01/27/2023 1:54 PM CDT): This is a chronic condition which is not at goal of LDL less than 70 Continue pravastatin Encouraged to eat healthy, include fresh fruits and vegetables daily and avoid eating fried foods more than once per week. Encouraged to take medications as prescribed. Assessment & Plan (11/03/2022 1:56 PM CDT): This is a chronic condition which is not at goal of LDL less than 70 Continue pravastatin Encouraged to eat healthy, include fresh fruits and vegetables daily and avoid eating fried foods more than once per week. Encouraged to take medications as prescribed. Assessment & Plan (07/30/2022 8:13 AM RETAIL STOCK CLERK): This is a chronic condition which is not at goal of LDL less than 70 Continue pravastatin Encouraged to eat healthy, include fresh fruits and vegetables daily and avoid eating fried foods more than once per week. Encouraged to take medications as prescribed. Assessment & Plan (06/18/2022 10:10 AM RETAIL STOCK CLERK): This is a chronic condition which is not at goal of LDL less than 70 Continue pravastatin Encouraged to eat healthy, include fresh fruits and vegetables daily and avoid eating fried foods more than once per week. Encouraged to take medications as prescribed. Assessment & Plan (10/11/2021 11:36 AM CDT): 06/2021 TC 188 HDL 38 TRG 195 LDL 111 Urinary frequency 07/11/2021 Assessment & Plan (07/11/2021 5:41 PM RETAIL STOCK CLERK): Secondary to uncontrolled diabetes. No evidence of infection on urinalysis. Vitamin D deficiency 07/01/2021 Assessment & Plan (05/17/2024 11:04 AM RETAIL STOCK CLERK): Will recheck Vitamin D and continue to monitor. Family history of colon cancer in father 021 Overview (10/12/2020): Added automatically from request for surgery [id number] Encounter for colonoscopy in patient with family history of colon cancer 10/12/2020 Overview (10/12/2020): Added automatically from request for surgery [id number] Class 3 severe obesity due t o excess calories with serious comorbidity and body mass index (BMI) of 40.0 to 44.9 in adult 09/24/2020 Assessment & Plan (06/09/2024 1:14 PM RETAIL STOCK CLERK): This is a chronic condition which continues Weight stable since last office visit Encouraged healthy eating which includes a low carb diet. Avoiding processed foods, sweets and fried foods. Encouraged 30 minutes of walking at least 5 days per week Discussed that exercise can be broken down into small sessions- for example 2- 15 minutes sessions or 3- 10 minutes sessions. Assessment & Plan (05/31/2024 11:31 AM RETAIL STOCK CLERK): Encouraged heart healthy diet and lifestyle. Advised 150 min/week of aerobic exercise. Assessment & Plan (05/17/2024 11:03 AM RETAIL STOCK CLERK): Encouraged heart healthy diet and lifestyle. Advised 150 min/week of aerobic exercise. Assessment & Plan (02/24/2024 4:12 PM CDT): This is a chronic condition which continues 3 lbs. Weight increase since last office visit Encouraged healthy eating which includes a low carb diet. Avoiding processed foods, sweets and fried foods. Encouraged 30 minutes of walking at least 5 days per week Discussed that exercise can be broken down into small sessions- for example 2- 15 minutes sessions or 3- 10 minutes sessions. Assessment & Plan (10/22/2023 4:32 PM CDT): This is a chronic condition which continues Weight stable since last office visit Encouraged healthy eating which includes a low carb diet. Avoiding processed foods, sweets and fried foods. Encouraged 30 minutes of walking at least 5 days per week Discussed that exercise can be broken down into small sessions- for example 2- 15 minutes sessions or 3- 10 minutes sessions. Encouraged to follow up with [employer] to receive Ozempic from the patient assistance program Assessment & Plan (07/08/2023 4:49 PM RETAIL STOCK CLERK): This is a chronic condition which continues 2 lb weight loss since last office visit Still attempting to get Ozempic from [employer] patient assistance program Encouraged healthy eating, portion sizes. She reports she has been eating more vegetables such as broccoli Assessment & Plan (10/11/2021 11:33 AM CDT): Discussed healthy diet and importance of regular physical activity. Assessment & Plan (10/11/2021 9:16 AM CDT): Discussed healthy diet and importance of regular physical activity. Assessment & Plan (09/24/2020 4:22 PM CDT): Reviewed need to lose weight, reviewed health benefits. Reviewed recommendations for daily intake & activity 20-30 minutes/day. Discussed healthy diet and importance of regular physical activity. Psychophysiological insomnia 05/07/2020 Assessment & Plan (05/17/2024 11:03 AM RETAIL STOCK CLERK): Sleep continues to be a problem. Will start on PRN xanax nightly to aid in sleep. Will follow-up in 3 months. Assessment & Plan (01/11/2024 1:51 PM CDT): Chronic, not well controlled Did not have luck with Trazodone or Ambien Seroquel 25-50 mg nightly as needed Assessment & Plan (05/05/2023 1:23 PM RETAIL STOCK CLERK): Patient still having difficulty sleeping; states trazodone did not help Has tried ambien in the past Ambien 10 mg nightly Assessment & Plan (09/24/2020 11:25 PM CDT): ambien 5mg. Reviewed med SE & scheduling. Reviewed good sleep hygiene: no electronics, cool/dark room, warm shower/tub prior to bedtime, no caffeine after 3-4p, no exercise 3hr prior to sleep. Stressed need to improve diet & increase activity. Assessment & Plan (06/26/2020 8:26 PM RETAIL STOCK CLERK): Trazodone did not help w/sleep schedule & also caused hang-over feeling. Agreeable to trial ambien 5mg qhs. Reviewed med SE & scheduling. Will call/rtc if no improvement w/ambimtiaz. Aware that she has to call monthly for refill request; needs to be seen every 3 months for refill. Reviewed good sleep hygiene: no electronics, cool/dark room, warm shower/tub prior to bedtime, no caffeine after 3-4p, no exercise 3hr prior to sleep. Stressed need to increase activity (has started). Assessment & Plan (05/07/2020 6:19 PM RETAIL STOCK CLERK): Discussed needing to readjust wake/sleep schedule (likened to baby off schedule). Discussed setting back time to go to bed/stay up/etc. Need to employ alarms. No electronics in room. Very sedentary. Needs to increase physical activity to tire/fatigue body. Trazodone 50mg qhs sent. Reviewed med SE & scheduling. Will be helpful w/depression & sleep. To make f/u appt in 4-6 weeks. Allergic rhinitis 02/21/2020 Assessment & Plan (03/16/2020 5:41 PM CDT): Reviewed notes from Dr Ramirez. No changes at this time. Negative assessment Assessment & Plan (02/21/2020 8:37 PM CDT): Nasal saline spray (Simply saline, [employer] Remedies, [place], [place]) 2 second sprays or 2 squeezes into each nostril while looking down over the sink, do not need to sniff in. Followed by Flonase 2 sprays into each nostril while looking down over the sink, do not sniff in or blow nose after use for at least 30 minutes daily Cetirizine 10 mg (Zyrtec) daily Chronic eczematous otitis externa of both ears 0 02/21/2020 Assessment & Plan (10/11/2021 11:38 AM CDT): Avoid using qtips. Follow up with ENT if no improvement with use of gttps. Assessment & Plan (02/21/2020 11:14 AM CDT): Nasal saline spray (Simply saline, Little Remedies, [place], [place]) 2 second sprays or 2 squeezes into each nostril while looking down over the sink, do not need to sniff in. Followed by Flonase 2 sprays into each nostril while looking down over the sink, do not sniff in or blow nose after use for at least 30 minutes daily Cetirizine 10 mg (Zyrtec) daily Avoid ear cleaning techniques Avoid water to ears Hearing test - call with results Call if no improvement in 6 weeks Consider Lotrisone if no improvement Colon cancer screening 06/27/2019 Assessment & Plan (09/24/2020 11:22 PM CDT): Referral to [facility] for repeat colonoscopy. Had last 2012, and was to repeat in 2018. Ordered for [facility] at this time. Will fax letter to her insurance per her information to inform why repeat colonoscopy needed. Contact info for [facility] given to Mrs Judd. Assessment & Plan (06/26/2020 8:19 PM RETAIL STOCK CLERK): States that insurnace requires her to have form faxed to get prior auth for colonoscopy. Forgot at home today. Will bring in to be filled out to get auth for colonoscopy. Assessment & Plan (06/28/2019 10:08 PM RETAIL STOCK CLERK): Referral to [facility] for colonoscopy. Aware that [facility] will contact her to set up testing. Localized edema 11/16/2018 Assessment & Plan (03/16/2020 5:41 PM CDT): Discussed compression socks, feet elevation, foot pumps/ankle rolls. Lasix refilled. Reviewed med SE & scheduling. Assessment & Plan (11/16/2018 2:01 PM CDT): Lasix refilled. Aware to keep LE elevated when sitting. Discussed compression hose; is wearing on plane to [place] & back 11/28/18. Bilateral hearing loss 09/23/2018 Assessment & Plan (02/21/2020 8:37 PM CDT): Avoid ear cleaning techniques Avoid water to ears Hearing test - call with results Assessment & Plan (09/23/2018 11:19 AM CDT): Declines referral to fashion journalist and/or ENT at this time. Will call if she desires referral. Refused influenza vaccine 05/10/2018 Assessment & Plan (05/07/2020 6:16 PM RETAIL STOCK CLERK): Discussed and the patient refuses immunization today. Educated regarding the need to vaccinate for personal protection and to limit the viruses in the community to protect those most vulnerable. Assessment & Plan (03/16/2020 5:40 PM CDT): Discussed and the patient refuses immunization today. Educated regarding the need to vaccinate for personal protection and to limit the viruses in the community to protect those most vulnerable. Assessment & Plan (06/28/2019 10:04 PM RETAIL STOCK CLERK): Discussed and the patient refuses immunization today. Educated regarding the need to vaccinate for personal protection and to limit the viruses in the community to protect those most vulnerable. Assessment & Plan (03/11/2019 6:40 PM CDT): Discussed and the patient refuses immunization today. Educated regarding the need to vaccinate for personal protection and to limit the viruses in the community to protect those most vulnerable. Assessment & Plan (09/23/2018 11:21 AM CDT): Strongly encouraged yearly influenza vaccine Hypothyroidism 04/07/2018 Assessment & Plan (06/09/2024 1:13 PM RETAIL STOCK CLERK): This is a chronic condition which is at goal goal of TSH between 0.3 to 4.2 mclUnits/ml Lab Results Component Value Date TSH 2.28 01/11/2024 TSH 3.21 12/29/2022 TSH 3.90 06/03/2022 Continue Levothryoxine 50 mcg po daily in am Discussed the importance of taking Levothryoxine on a empty stomach, which means one hour before eating or two hours after eating, food in the stomach will interfere with absorption of Levothyroxine, Calcium, antacids and iron supplements will interfere with the absorption of Levothyroxine, encouraged to take these at a different time of the day. Assessment & Plan (05/17/2024 11:02 AM RETAIL STOCK CLERK): Euthyroid. Will continue to monitor. Will continue with Synthroid. Will continue to follow with Endocrinology. Assessment & Plan (07/08/2023 4:48 PM RETAIL STOCK CLERK): This is a chronic condition which is at goal of TSH between 0.3 to 4.2 mclUnits/ml Personally reviewed lab. Lab Results Component Value Date TSH 3.21 12/29/2022 TSH 3.90 06/03/2022 TSH 2.05 01/23/2022 Continue Levothryoxine 50 mcg po daily in am Discussed the importance of taking Levothryoxine on a empty stomach, which means one hour before eating or two hours after eating. Discussed food in the stomach will interfere with absorption of Levothyroxine. Discussed Calcium, antacids and iron supplements will interfere with the absorption of Levothyroxine, encouraged to take these at a different time of the day. Assessment & Plan (10/11/2021 12:12 PM CDT): Levothyroxine 50 mcg daily. Will check TSH/T4 and make changes as needed. Lab Results Component Value Date TSH 2.71 09/21/2020 TSH 1.35 03/16/2020 TSH 2.01 03/11/2019 Assessment & Plan (10/11/2021 11:33 AM CDT): Levothyroxine 50 mcg daily. Will check TSH/T4 and make changes as needed. Assessment & Plan (09/24/2020 4:02 PM CDT): Copy of results given to Nelida Judd. Reviewed results from 09/21/20 at time of appointment. Assessment & Plan (06/26/2020 8:24 PM RETAIL STOCK CLERK): TSH/T4 ordered; will contact with results when received. Reviewed med SE & scheduling. Reviewed sxs hypo/hyperthyroidism. Will recheck TFTs with next labs. Assessment & Plan (05/07/2020 6:16 PM RETAIL STOCK CLERK): Lab Results Component Value Date TSH 1.35 03/16/2020 TSH 2.01 03/11/2019 TSH 3.21 11/11/2018 TFTs WNL 02/2020. Reviewed med SE & scheduling. Reviewed sxs hypo/hyperthyroidism. No changes at this time. Assessment & Plan (03/16/2020 5:40 PM CDT): Has not been seen since 06/2019 & has not had labs completed since 05/2019. Lab Results Component Value Date TSH 2.01 03/11/2019 TSH 3.21 11/11/2018 TSH 5.51 (H) 08/13/2018 TSH/T4 ordered; will contact with results when received. Reviewed med SE & scheduling. Reviewed sxs hypo/hyperthyroidism. No changes at this time. Assessment & Plan (06/28/2019 10:03 PM RETAIL STOCK CLERK): TSH/T4 ordered; will call w/results when rec'd. Reviewed med Ses & scheduling. Reviewed sxs hypo/hyperthyroidism. No changes at this time. Assessment & Plan (03/11/2019 6:40 PM CDT): TSH/T4 ordered; will call w/results when rec'd. Reviewed med Ses & scheduling. Reviewed sxs hypo/hyperthyroidism. No changes at this time. Assessment & Plan (11/16/2018 1:59 PM CDT): TSH/T4 reviewed today; copy given to Mrs Judd. Reviewed med Ses & scheduling. Reviewed sxs hypo/hyperthyroidism. No changes at this time. Diverticulitis of sigmoid colon 03/06/2016 Overview (09/26/2016): Diverticulitis large intestine w/o perforation or abscess w/o bleeding Assessment & Plan (05/31/2024 11:33 AM RETAIL STOCK CLERK): Improving. Has 3 days of Augmentin left. She is starting to get relief. No blood in stool. She is having some abdominal pain that is gas related and baseline. We will continue to monitor. Type 2 diabetes mellitus wit h hyperglycemia, with long-term current use of insulin Assessment & Plan (06/09/2024 1:13 PM RETAIL STOCK CLERK): This is a chronic condition which is elevated, not at goal . Goal is less than 7%. Personally reviewed most recent A1c - Lab Results Component Value Date HGBA1C 8.5 06/09/2024 Personally reviewed POC blood sugar- elevated, not at goal of 80-180 Lab Results Component Value Date POCGLU 196 06/09/2024 Medication- continue basaglar 30 units daily, continue lyumjev 10 units 3 times a prior to meals 3x/day. We will apply for [employer] program to receive Basaglar/Luymjev Does not tolerate-metformin- diarrhea. Reports a history of IBS. Could not afford ozempic- not on formulary. attempting to get Ozempic from [employer] patient assistance program. Monitor blood sugar with CGM. Does not have CGM on today. States that a.m. blood sugars are running in the 200s.. Encouraged annual eye exam. last dilated eye exam was [facility]. Monofilament foot exam completed. Protective senses -intact eGFR- greater than 90 Kidney function-normal Urine microalbumin/creatinine ratio - at goal. Goal is <30 not treated with PACO/ARB Assessment & Plan (05/17/2024 11:02 AM RETAIL STOCK CLERK): Lab Results Component Value Date HGBA1C 7.4 02/24/2024 HGBA1C 6.8 10/22/2023 HGBA1C 10.4 (H) 04/29/2023 A1C not at goal. Getting CGM placed today due to just getting new shippment. Continue to follow with Endocrinology. Continue on insulin. Assessment & Plan (02/24/2024 4:11 PM CDT): This is a chronic condition which is slightly elevated but still at goal . Goal is less than 7-8%. Personally reviewed most recent A1c - Lab Results Component Value Date HGBA1C 7.4 02/24/2024 Personally reviewed POC blood sugar- at goal of 80-180 Lab Results Component Value Date POCGLU 173 02/24/2024 Medication- continue basaglar 30 units daily, continue lyumjev 10 units 3 times a prior to meals 3x/day. Monitor blood sugar continuously with cgm. Encouraged annual eye exam. last dilated eye exam was completed today in the office Monofilament foot exam completed. Protective senses -intact eGFR- greater than 90 Kidney function-normal Urine microalbumin/creatinine ratio - at goal. Goal is <30 not treated with PACO/ARB Assessment & Plan (10/22/2023 4:31 PM CDT): This is a chronic condition which is at goal . Goal is less than 7%. Personally reviewed most recent A1c - Lab Results Component Value Date HGBA1C 6.8 10/22/2023 Personally reviewed POC blood sugar- not at goal of 80-180 Lab Results Component Value Date POCGLU 198 10/22/2023 Medication- Basaglar 30 units daily, lyumjev 10 units 3 times a day prior to meals. Receives insulin from [employer] Monitor blood sugar continuously with cgm. Encouraged annual eye exam. Monofilament foot exam completed. Protective senses intact Personally reviewed CMP eGFR- 1O2 Kidney function-normal Urine microalbumin/creatinine ratio - at goal. Goal is <30 not treated with PACO/ARB B/P today- at goal . Goal is <140/90 Assessment & Plan (07/08/2023 4:47 PM RETAIL STOCK CLERK): This is a chronic condition which is poorly controlled, not at goal of less than 8%. Personally reviewed most recent A1c - 05/27/23 A1c- 9.8% at [facility]. See media Lab Results Component Value Date HGBA1C 10.4 (H) 04/29/2023 Personally reviewed POC blood sugar- not at goal 80-180 Lab Results Component Value Date POCGLU 241 07/08/2023 Medication- continue basaglar 30 units daily, continue lyumjev 10 units 3 times a prior to meals 3x/day. attempting to get Ozempic from [employer] patient assistance program. Monitor blood sugar continuously with dexcom 7 sensor. 2 office samples provided. Encouraged annual eye exam. Monofilament foot exam completed. protective senses intact Personally reviewed CMP eGFR- 102 Kidney function- normal Urine microalbumin/creatinine ratio - at goal <30 not treated with PACO/ARB B/P today-at goal of <140/90. Personally reviewed lipid panel. Not at Goal of less than 70. Continue pravastatin. Assessment & Plan (06/03/2023 3:26 PM RETAIL STOCK CLERK): Uncontrolled; was in hospital from 05/27-05/29 for glucose of 501. Since discharge patient states she has been running under 200 Follow up scheduled with endo on 07/08 Assessment & Plan (04/29/2023 3:26 PM RETAIL STOCK CLERK): This is a chronic condition which is out of control, worsening not at goal of less than 7%. Personally reviewed most recent A1c - Lab Results Component Value Date HGBA1C 10.9 04/29/2023 Personally reviewed POC blood sugar- not at goal 80-180 Lab Results Component Value Date POCGLU 193 04/29/2023 Medication- continue basaglar 30 units daily, continue lyumjev 10 units 3 times a prior to meals 3x/day. will attempt to get Ozempic from [employer] patient assistance program once application is filled out. Does not tolerate-metformin- diarrhea. Reports a history of IBS. Could not afford ozempic- not on formulary. Monitor blood sugar 3times a day. Encouraged annual eye exam. Monofilament foot exam completed. protective senses intact Personally reviewed CMP eGFR- 100 Kidney function- normal Urine microalbumin/creatinine ratio - at goal <30 not treated with PACO/ARB B/P today- at goal of <140/90. Personally reviewed lipid panel. Not at Goal of less than 70. Not on statin therapy. Assessment & Plan (01/27/2023 1:53 PM CDT): This is a chronic condition which is poorly controlled, worsening not at goal of less than 7%. Personally reviewed most recent A1c - Lab Results Component Value Date HGBA1C 10.1 (H) 12/29/2022 Personally reviewed POC blood sugar- not at goal 80-180 Lab Results Component Value Date POCGLU 250 01/27/2023 Medication- decrease basaglar 30 units daily, start lyumjev 10 units 3 times a prior to meals 3x/day. Monitor blood sugar 3 times a day. Encouraged annual eye exam. Monofilament foot exam completed. protective senses intact Personally reviewed CMP eGFR- 100 Kidney function- normal Urine microalbumin/creatinine ratio - not at goal <30 not treated with PACO/ARB B/P today- at goal of <140/90. Personally reviewed lipid panel. Not at Goal of less than 70. Continue pravastatin Assessment & Plan (11/03/2022 1:55 PM CDT): This is a chronic condition which is improving, remains out of control and not at goal of less than 7%. Personally reviewed most recent A1c - Lab Results Component Value Date HGBA1C 9.7 10/31/2022 Personally reviewed POC blood sugar- not at goal 80-180 Lab Results Component Value Date POCGLU 236 11/03/2022 Medication- Increase basaglar 45 units daily, will attempt to get Ozempic from [employer] patient assistance program. Application filled out Monitor blood sugar 2x times a day. Encouraged annual eye exam. Monofilament foot exam completed. protective senses intact Urine microalbumin/creatinine ratio - at goal <30 not treated with PACO/ARB Personally reviewed CMP eGFR- 96 Kidney function- normal B/P today- at goal of <140/90. Personally reviewed lipid panel. Not at Goal of less than 70. Continue pravastatin Assessment & Plan (07/30/2022 8:55 AM RETAIL STOCK CLERK): This is a chronic condition which is improving as per blood sugars and close to goal of less than 7%. Personally reviewed most recent A1c - Lab Results Component Value Date HGBA1C 11.3 (H) 06/03/2022 Personally reviewed POC blood sugar- 237, not at goal 80-180 Medication- Continue Lantus 40 units daily. Start trulicity 0.75 mg weekly- if accepted in [employer] program. She provided [employer] program paperwork but the financial disclosure was not included. She was informed to return with that and then we will submit the paperwork for the program. Monitor blood sugar 2-3 times a day. Encouraged annual eye exam. Monofilament foot exam completed. protective senses intact Urine microalbumin/creatinine ratio - not at goal <30-300mg/g- per point of care testing Will monitor Started on losartan 25 mg p.o. daily Personally reviewed CMP GFR- 96 Kidney function- normal Started losartan 25 mg po daily B/P today- not at goal of <140/90. Start losartan 25 mg p.o. daily Personally reviewed lipid panel. Not at Goal of less than 70. Continue pravastatin Assessment & Plan (06/18/2022 10:09 AM RETAIL STOCK CLERK): This is a chronic condition which is out of control improving, worsening, not at goal of less than 7%. Personally reviewed most recent A1c - Lab Results Component Value Date HGBA1C 11.3 (H) 06/03/2022 Personally reviewed POC blood sugar- Lab Results Component Value Date POCGLU 227 06/18/2022 not at goal 80-180 Medication- Continue Lantus 40 units daily. Start trulicity 0.75 mg weekly. Monitor blood sugar 2-3 times a day. Encouraged annual eye exam. Monofilament foot exam completed. protective senses intact Urine microalbumin/creatinine ratio - at goal <30 not treated with PACO/ARB Personally reviewed CMP GFR- 96 Kidney function- normal B/P today- at goal of <140/90. Not on PACO/ARB Personally reviewed lipid panel. Not at Goal of less than 70. Continue pravastatin Assessment & Plan (01/10/2022 12:52 PM CDT): Condition is improving Personally reviewed A1c 9.4% was 10.7% goal A1c 6.9% or less, as close to <6.5% Lab Results Component Value Date HGBA1C 9.4 01/10/2022 HGBA1C 10.7 10/11/2021 HGBA1C 11.0 07/01/2021 Maintenance Diabetic (Monofilament) foot exam-deferred 2/2 current illness. Annual dilated eye exams. Last dilated eye exam was 11/29/2020 Annual Urine microalbumin 80 BP management B/P today- 124/82 good Goal blood pressure is <140/90, long-term blood pressure goal is to be as close to 120/80 as possible. Dyslipidemia management Personally reviewed most recent LDL as shown below. Patient is on a statin cholesterol lowering medication. Goal of less than 70. LDL=91 Diabetes Complications History of macrovascular disease (CVA, UT, PVD) is not Present. Complications secondary to Diabetes - none Taking baby aspirin daily: Yes Smoking status: non-smoker Medications Metformin increase to 500 mg in the morning and 1000 mg in the evening. Discussed labs/ordered labs that have been ordered if applicable. Discussed eating a healthy low carb diet, include fresh fruits and vegetables daily. Diabetic education and nutritional counseling available if you have not had this before or annually. Encouraged to try moving at least a total of 30 minutes/day. Just move more. Instructed to wash, dry, lotion and check feet daily. Instructed to notify office if blood sugars are less than 80 or greater than 250 for 3 days Assessment & Plan (10/11/2021 1:00 PM CDT): Lab Results Component Value Date HGBA1C 10.7 10/11/2021 HGBA1C 11.0 07/01/2021 HGBA1C 8.2 (H) 09/21/2020 Marginal improvement with metformin use. Will increase metformin to BID and start ozempic 0.25mg weeks x 4 weeks. Again, encouraged patient to monitor BG at least twice daily. Continue checking feet daily. Monofilament testing completed today: protective senses intact. Assessment & Plan (10/11/2021 11:35 AM CDT): Lab Results Component Value Date HGBA1C 11.0 07/01/2021 HGBA1C 8.2 (H) 09/21/2020 HGBA1C 8.4 (H) 06/13/2020 Recommended evaluation with early childhood special educator, patient declines. Stressed the importance of checking blood glucose daily and bring log of blood glucose readings to appointment. Continue checking feet daily. Assessment & Plan (09/24/2020 11:26 PM CDT): Lab Results Component Value Date HGBA1C 8.2 (H) 09/21/2020 HGBA1C 8.4 (H) 06/13/2020 HGBA1C 10.6 (H) 03/16/2020 Copy of results given to Nelida Judd. Reviewed results from 09/21/20 at time of appointment. Reviewed dietary/exercise recommendations. Instructed to perform daily foot check. Reviewed medication side effects & scheduling. To check/record FSBS & bring to appointments. To make follow up appointment in 3 months. Reviewed red flags; what would warrant further evaluation. Stressed need to improve diet & activity to help greatly improve diabetes. Assessment & Plan (06/26/2020 8:28 PM RETAIL STOCK CLERK): Lab Results Component Value Date HGBA1C 8.4 (H) 06/13/2020 HGBA1C 10.6 (H) 03/16/2020 HGBA1C 7.6 (H) 06/17/2019 Copy of results given to Nelida Judd. Reviewed results at time of appointment. Congratulated on A1c improvement. Discussed goal of A1c less than 7.0%. Aware to call to schedule DM eye exam. Reviewed dietary/exercise recommendations. Instructed to perform daily foot check. Reviewed medication side effects & scheduling. To check/record FSBS & bring to appointments. To make follow up appointment in 3 months. Reviewed red flags; what would warrant further evaluation. Assessment & Plan (05/07/2020 6:18 PM RETAIL STOCK CLERK): Lab Results Component Value Date HGBA1C 10.6 (H) 03/16/2020 HGBA1C 7.6 (H) 06/17/2019 HGBA1C 6.1 (H) 03/11/2019 Again reviewed labs. A1c uncontrolled at this time. Stressed need for diet/activity changes. Will need to increase meds/add more if no improvement. Poorly controlled diabetic. Poor compliance with diabetic treatment and testing. Last A1c=10.6% Stressed need to watch intake and monitor blood sugars. Reviewed end-organ damage related to elevated blood sugars. Reviewed recommendations in diet and exercise. Stressed need to take medications as ordered. Discussed diabetic eye exam; need yearly. To send any past eye exams to our office. Stressed need to have labs drawn so we can better treat diabetes. Will contact with lab results once received. Assessment & Plan (03/16/2020 5:39 PM CDT): Lab Results Component Value Date HGBA1C 7.6 (H) 06/17/2019 HGBA1C 6.1 (H) 03/11/2019 HGBA1C 6.4 (H) 11/11/2018 Has not been seen since 06/2019 & has not had labs completed since 05/2019. Reports worsening BG & aware that A1c will be elevated also. Stressed need to get up/get active & watch intake. Poorly controlled diabetic. Poor compliance with diabetic treatment and testing. Stressed need to watch intake and monitor blood sugars. Reviewed end-organ damage related to elevated blood sugars. Reviewed recommendations in diet and exercise. Stressed need to take medications as ordered. Discussed diabetic eye exam; need yearly. To send any past eye exams to our office. Stressed need to have labs drawn so we can better treat diabetes. Will contact with lab results once received. Assessment & Plan (06/28/2019 10:02 PM RETAIL STOCK CLERK): Has not been following diet nor exercising. Relates that she 'slacked off during the holidays' and has improved diet of late. Reviewed dietary/exercise recommendations. Instructed to perform daily foot check. Reviewed medication side effects & scheduling. To check/record FSBS & bring to appointments. Labs ordered; will call with results when received. To make follow up appointment in 3 months. Reviewed red flags; what would warrant further evaluation. Reviewed upward trending A1c & risks r/t elevated A1c levels. Lab Results Component Value Date HGBA1C 7.6 (H) 06/17/2019 HGBA1C 6.1 (H) 03/11/2019 HGBA1C 6.4 (H) 11/11/2018 Assessment & Plan (03/11/2019 6:39 PM CDT): A1C will be checked today. Will make medication changes as needed after review of the lab. For now continue medications as they are. Discussed the need to strive for regular exercise (30min most days) and diet (get at least 4-5 servings of fruit and veggies daily). Watch carbs and simple sugars. Check the blood sugar 1-2 times per day. Check the feet daily for skin breakdown and infection. Assessment & Plan (09/23/2018 11:21 AM CDT): Diabetes is improving with treatment. Continue current treatment regimen. Diabetes will be reassessed 11/16/18. Reviewed good control of blood sugars will help healing of abdominal wound. Assessment & Plan (09/12/2018 9:26 PM CDT): Sugars are controlled. Patient is on U 300 28units nightly. Will order 20 units of Lantus. Patient is also on a high-dose sliding scale. Normocytic anemia Fatty liver Resolved Problems Problem Noted Date Diagnosed Date Resolved Date Encounter for screening mamm ogram for malignant neoplasm of breast 06/26/2020 09/24/2020 Assessment & Plan (06/26/2020 8:23 PM RETAIL STOCK CLERK): Mammogram order given; will call with results when received. Encouraged to perform monthly SBE. Please call [facility] Scheduling department at [phone] to schedule your mammogram.. Dyslipidemia associated with type 2 diabetes mellitus (CMS/HCC) 03/16/2020 07/30/2022 Assessment & Plan (10/11/2021 9:14 AM CDT): 06/2021 TC 188 HDL 38 TRG 195 LDL 111 Assessment & Plan (09/24/2020 4:02 PM CDT): Copy of results given to Nelida Judd. Reviewed results from 09/21/20 at time of appointment. 03/16/20 SX=103 HDL=37 WQ=599 HXF=993 TC/HDL=5.0 06/13/20 SD=746 HDL=44 JX=062 JOP=345 TCH/HDL=4.0 09/21/20 OI=508 HDL=46 IQ=363 TYV=883 TC/HDL=4.0 The 10-year ASCVD risk score (Sher LYNN Jr., et al., 2013) is: 14.8% Values used to calculate the score: Age: 65 years Sex: Female Is Non- : No Diabetic: Yes Tobacco smoker: No Systolic Blood Pressure: 134 mmHg Is BP treated: Yes HDL Cholesterol: 46 mg/dL Total Cholesterol: 198 mg/dL Pravastatin 20mg daily. Patient should focus on limiting bad fats in the diet and using exercise as a way to improve the lipid status. Secondary prevention. Reviewed medications. Denies any statin Ses. Reviewed diet/exercise recommendations. Reviewed red flags. Assessment & Plan (06/26/2020 8:28 PM RETAIL STOCK CLERK): 06/17/19 tr=118 rj=716 hdl=52 ldl=89 tc/hdl=3 a1c=7.6% 03/16/20 CB=485 HDL=37 UB=330 JXS=994 TC/HDL=5.0 06/13/20 OG=495 HDL=44 TP=901 YOI=017 TCH/HDL=4.0 Copy of results given to Nelida Judd. Reviewed results at time of appointment. Reviewed improvement in triglycerides, TC and TC/HDL. HDL also improved. No changes in pravastatin 20mg. Patient should focus on limiting bad fats in the diet and using exercise as a way to improve the lipid status. Secondary prevention. Reviewed medications. To have lipid panel rechecked prior to next appt in 3 mos. Denies any statin Ses. Reviewed diet/exercise recommendations. Reviewed red flags. The 10-year ASCVD risk score (Sher LYNN Jr., et al., 2013) is: 14.3% Values used to calculate the score: Age: 65 years Sex: Female Is Non- : No Diabetic: Yes Tobacco smoker: No Systolic Blood Pressure: 132 mmHg Is BP treated: Yes HDL Cholesterol: 44 mg/dL Total Cholesterol: 188 mg/dL Assessment & Plan (05/07/2020 6:14 PM RETAIL STOCK CLERK): We will check labs and make adjustments to medications as needed. Patient should focus on limiting bad fats in the diet and using exercise as a way to improve the lipid status. Secondary prevention. Reviewed medications. Lipid panel ordered; will call w/results when rec'd. Denies any statin Ses. Reviewed diet/exercise recommendations. Reviewed red flags. Assessment & Plan (03/16/2020 5:42 PM CDT): Has not been seen since 06/2019 & has not had labs completed since 05/2019. Lab Results Component Value Date CHOL 178 06/17/2019 CHOL 216 (H) 03/11/2019 CHOL 215 (H) 11/11/2018 HDL 52 06/17/2019 HDL 47 03/11/2019 HDL 46 (L) 11/11/2018 LDL 139 (H) 11/11/2018 LDL 134 (H) 08/13/2018 LDL 125 (H) 06/03/2017 TRIG 185 (H) 06/17/2019 TRIG 136 03/11/2019 TRIG 165 (H) 11/11/2018 We will check labs and make adjustments to medications as needed. Patient should focus on limiting bad fats in the diet and using exercise as a way to improve the lipid status. Secondary prevention. Reviewed medications. Lipid panel ordered; will call w/results when rec'd. Denies any statin Ses. Reviewed diet/exercise recommendations. Reviewed red flags. Hypertension associated with diabetes 03/16/2020 02/24/2024 Assessment & Plan (10/22/2023 4:31 PM CDT): This is a chronic condition which is at goal. Goal is less than 140/90 Personally reviewed labs. Encouraged to monitor weight and B/P at home Encouraged to take medications as prescribed. Assessment & Plan (10/11/2021 1:01 PM CDT): BP well controlled on current medication regimen, no med changes made today. Assessment & Plan (09/24/2020 4:03 PM CDT): Copy of results given to Nelida Judd. Reviewed results from 09/21/20 at time of appointment. The blood pressure is under good control. Ideally it should be under 130/80. Continue medications without adjustment. Continue efforts to eat well (4-5 fruits and veggies) daily and exercise for about 30 min nearly every day. Watch salt intake, keeping to less than 2000mg per day. Limit alcohol. Include strategies to cope with stress. Assessment & Plan (06/26/2020 8:23 PM RETAIL STOCK CLERK): Copy of results given to Nelida Judd. Reviewed results at time of appointment. The blood pressure is under good control. Ideally it should be under 130/80. Continue medications without adjustment. Continue efforts to eat well (4-5 fruits and veggies) daily and exercise for about 30 min nearly every day. Watch salt intake, keeping to less than 2000mg per day. Limit alcohol. Include strategies to cope with stress. Assessment & Plan (05/07/2020 6:14 PM RETAIL STOCK CLERK): The blood pressure is under good control. Ideally it should be under 130/80. Continue medications without adjustment. Continue efforts to eat well (4-5 fruits and veggies) daily and exercise for about 30 min nearly every day. Watch salt intake, keeping to less than 2000mg per day. Limit alcohol. Include strategies to cope with stress. Labs ordered today; will contact w/results once received. Assessment & Plan (03/16/2020 5:42 PM CDT): Has not been seen since 06/2019 & has not had labs completed since 05/2019. The blood pressure is under good control. Ideally it should be under 130/80. Continue medications without adjustment. Continue efforts to eat well (4-5 fruits and veggies) daily and exercise for about 30 min nearly every day. Watch salt intake, keeping to less than 2000mg per day. Limit alcohol. Include strategies to cope with stress. Labs ordered today; will contact w/results once received. Dysuria 03/16/2020 05/07/2020 Assessment & Plan (03/16/2020 5:43 PM CDT): UA/cx sent. Will check over weekend to see if results returned. Will call if abx needed. Verified phone number. Do not hold your urine. Urinate as soon as you feel the need to go Drink plenty of water and fluids. Limit alcohol, caffeine, and citrus juices- They will irritate the bladder Wipe front to back & wear cotton underwear Can use over the counter Azo (pyridium) to help numb the bladder and make urination more comfortable. Can add cranberry supplement to acidify the urine Mixed hyperlipidemia 03/11/2019 020 Assessment & Plan (06/28/2019 10:07 PM RETAIL STOCK CLERK): We will check labs and make adjustments to medications as needed. Patient should focus on limiting bad fats in the diet and using exercise as a way to improve the lipid status. Secondary prevention. Reviewed medications. Lipid panel ordered; will call w/results when rec'd. Denies any statin Ses. Reviewed diet/exercise recommendations. Reviewed red flags. Assessment & Plan (03/11/2019 6:41 PM CDT): We will check labs and make adjustments to medications as needed. Patient should focus on limiting bad fats in the diet and using exercise as a way to improve the lipid status. Secondary prevention. Reviewed medications. Lipid panel ordered; will call w/results when rec'd. Denies any statin Ses. Reviewed diet/exercise recommendations. Reviewed red flags. Pre-operative clearance 03/11/201911/2019 Assessment & Plan (03/11/2019 6:38 PM CDT): To have abdominal mesh removed by Dr Iveth Green at [facility]. Must have cardiac clearance completed first. Had appt w/Dr Paul yesterday. Mrs Judd reports EKG completed and normal (no copy available). Is to have echo prior to grass cutter giving clearance. Awaiting call from his office. Labs ordered. Cleared from primary care standpoint pending lab results. Will have cardiac clearance by Dr Paul. Infected prosthetic mesh of abdominal wall 03/11/2019 06/27/2019 Assessment & Plan (03/11/2019 6:38 PM CDT): Pending surgical removal of abdominal mesh. Type 2 diabetes mellitus wit h diabetic autonomic neuropathy, without long-term current use of insulin 11/16/2018 06/28/2019 Assessment & Plan (11/16/2018 2:01 PM CDT): Diabetes is improving with treatment. Continue current treatment regimen. Dietary recommendations for ADA diet. Regular aerobic exercise. Discussed foot care. Ophthalmology referral. Diabetes will be reassessed in 3 months. MSSA (methicillin susceptibl e Staphylococcus aureus) infection 09/30/2018 06/27/2019 Mammogram declined 08/16/2018 1 Assessment & Plan (09/23/2018 11:23 AM CDT): Last mamm 05/2017. Encouraged yearly breast cancer screening. Essential hypertension 05/11/201803/16 Assessment & Plan (06/28/2019 10:04 PM RETAIL STOCK CLERK): The blood pressure is under good control. Ideally it should be under 130/80. Continue medications without adjustment. Continue efforts to eat well (4-5 fruits and veggies) daily and exercise for about 30 min nearly every day. Watch salt intake, keeping to less than 2000mg per day. Labs ordered today; will contact w/results once received. Assessment & Plan (03/11/2019 6:40 PM CDT): Secondary prevention. Does not check BP at home; encouraged to check randomly. Reviewed diet/activity recommendations. Reviewed med Ses & scheduling. Reviewed red flags; what would warrant further eval. Labs ordered; will call w/results when rec'd. Assessment & Plan (11/16/2018 1:58 PM CDT): Hypertension is improving with treatment. Continue current treatment regimen. Dietary sodium restriction. Weight loss. Regular aerobic exercise. Continue current medications. Ambulatory blood pressure monitoring. Blood pressure will be reassessed at the next regular appointment. The blood pressure is under good control. Ideally it should be under 130/80. Continue medications without adjustment. Continue efforts to eat well (4-5 fruits and veggies) daily and exercise for about 30 min nearly every day. Watch salt intake, keeping to less than 2000mg per day. Limit alcohol. Include strategies to cope with stress. Labs reviewed today; copy given to Mrs Judd. Assessment & Plan (09/12/2018 9:27 PM CDT): Blood pressures are slightly elevated. Patient is on Lasix daily. Will hold for the a.m. As patient is NPO for possible I&D. Anxiety and depression 04/07/201805/07 Assessment & Plan (03/11/2019 6:40 PM CDT): Heightened anxiety/depression d/t recent surgery cancel & need for cardiac clearance. Will continue to monitor. Open abdominal wall wound 04/07/2018 Class 3 severe obesity due t o excess calories with body mass index (BMI) of 40.0 to 44.9 in adult 04/05/2018 05/17/2024 Assessment & Plan (06/26/2020 8:25 PM RETAIL STOCK CLERK): Has increased activity. Has lost 8# since last appt in April. Congratulated on wt loss; encouraged to continue. Reviewed need to lose weight, reviewed health benefits. Reviewed recommendations for daily intake & activity 20-30 minutes/day. Discussed healthy diet and importance of regular physical activity. Assessment & Plan (05/07/2020 6:16 PM RETAIL STOCK CLERK): In bed watching TV. Remains very sedentary. Again stressed need to increase activity. The BMI is in the obese range thus increasing your risk for cardiovascular, endocrine, GI, and musculoskeletal problems. Strive to cut back on calories and increase exercise to achieve weight loss. Include at least 4-5 fruits and vegetables in the diet daily and exercise for about 30 min nearly every day. Limit fried and high fat foods and include lean sources of protein as well as low fat dairy or other calcium sources. Consider making short and parts counterman goal to track your progress. Keep a diet/exercise record or on line resource to track calories in and out. Discuss your efforts with me at the next visit. Look up [employer] - this is a free calorie tracking jon. Discussed healthy diet and importance of regular physical activity. Assessment & Plan (03/16/2020 5:39 PM CDT): Very sedentary at this time. Lies in bed or sits watching TV when awake. Stressed need for increased activity. The BMI is in the obese range thus increasing your risk for cardiovascular, endocrine, GI, and musculoskeletal problems. Strive to cut back on calories and increase exercise to achieve weight loss. Include at least 4-5 fruits and vegetables in the diet daily and exercise for about 30 min nearly every day. Limit fried and high fat foods and include lean sources of protein as well as low fat dairy or other calcium sources. Consider making short and fci goal to track your progress. Keep a diet/exercise record or on line resource to track calories in and out. Discuss your efforts with me at the next visit. Look up [employer] - this is a free calorie tracking jon. Discussed healthy diet and importance of regular physical activity. Assessment & Plan (06/28/2019 10:03 PM RETAIL STOCK CLERK): Reviewed need to lose weight, reviewed health benefits. Reviewed recommendations for daily intake & activity 20-30 minutes/day. Discussed healthy diet and importance of regular physical activity. Assessment & Plan (03/11/2019 6:39 PM CDT): Reviewed need to lose weight, reviewed health benefits. Reviewed recommendations for daily intake & activity 20-30 minutes/day. Discussed healthy diet and importance of regular physical activity. Assessment & Plan (11/16/2018 2:00 PM CDT): Obesity is unchanged. Discussed the patient's BMI. The BMI is above average; BMI management plan is completed. General weight loss/lifestyle modification strategies discussed (elicit support from others; identify saboteurs; non-food rewards, etc). Diet interventions: low carb/calorie/fat & lean protein diet. Informal exercise measures discussed, e.g. taking stairs instead of elevator. Regular aerobic exercise program discussed. Assessment & Plan (09/23/2018 11:22 AM CDT): Obesity is unchanged. Discussed the patient's BMI. The BMI is above average; BMI management plan is completed. Reviewed need to lose weight, reviewed health benefits. Reviewed recommendations for daily intake & activity 20-30 minutes/day. Discussed healthy diet and importance of regular physical activity. Acute frontal sinusitis 10/09/2016 0409/2018 Overview (11/14/2016): Acute recurrent frontal sinusitis Acute cystitis 10/09/2016 09/23/2018 Overview (11/14/2016): Acute cystitis without hematuria Scar 07/21/2016 03/16/2020 Overview (09/26/2016): Scar tissue Ksenia infection of genital region 05/02/2016 09/23/2018 Overview (09/26/2016): Candidiasis of genitalia in female Candidiasis of skin 05/02/2016 09/24/19 19 Overview (09/26/2016): Candidiasis of skin Assessment & Plan (09/12/2018 9:28 PM CDT): Will order miconazole powder Nasopharyngitis 01/29/2016 09/23/2018 Overview (09/26/2016): Nasopharyngitis acute Morbid obesity 10/18/2015 09/23/2018 Overview (09/26/2016): Morbid obesity due to excess calories Acute urinary tract infection 10/18/2015 09/23/2018 Overview (09/26/2016): Acute UTI Depression 05/22/2014 05/17/2024 Assessment & Plan (10/11/2021 12:47 PM CDT): Patient doing well on current medication regimen, lexapro 20 mg daily. Denies feeling hopeless or having any thoughts of self harm. Encouraged exercise and healthy sleep schedule. Assessment & Plan (10/11/2021 11:36 AM CDT): Patient denies feeling hopeless or having any thoughts of self-harm. States she is perfectly happy with her current medication regimen. Reviewed medication side effects and scheduling, continue Lexapro 20 mg daily. Assessment & Plan (09/24/2020 11:22 PM CDT): lexapro 20mg. Reports good control of depression w/current regimen. No changes to be made at this time. Reviewed med Ses & scheduling. Reviewed red flags. Assessment & Plan (06/26/2020 8:20 PM RETAIL STOCK CLERK): lexapro 20mg daily. Mood improved, stable. Feels that lexapro has improved depression. Could not tolerate trazodone--felt like hung over when taking for the short time she actually tried. Reports good control of depression w/current regimen. No changes to bemade at this time. Reviewed med Ses & scheduling. Reviewed red flags. Assessment & Plan (05/07/2020 6:14 PM RETAIL STOCK CLERK): lexapro 20mg somewhat helpful. Mood has improved somewhat. Will add trazodone 50mg to help mood & sleep. To rtc in 4-6 weeks; sooner if worsening. Reports fair control of depression w/current regimen. Reviewed med Ses & scheduling. Reviewed red flags. Assessment & Plan (03/16/2020 5:38 PM CDT): Worsening depression. Will increase lexapro from 10 to 20mg. To make f/u appt in 6-8 weeks to check effectiveness of med increase. Reviewed med Ses & scheduling. Reviewed red flags. Assessment & Plan (06/28/2019 10:01 PM RETAIL STOCK CLERK): Reports good control of depression w/current regimen. No changes to be made at this time. Reviewed med Ses & scheduling. Reviewed red flags. Assessment & Plan (09/12/2018 9:28 PM CDT): Continue SSRI Abdominal wall abscess 03/16 Assessment & Plan (09/23/2018 11:23 AM CDT): appt w/wound clinic at 8am tomorrow 09/24/18. appt w/Dr Elke Whitt 09/28/18. appt w/Dr Archibald 09/30/18. No changes in plan of care at this time. Has C that sees her for wound care. Can call if help needed w/wound vac. Has above upcoming appts. Reviewed red flags. Assessment & Plan (09/12/2018 9:30 PM CDT): Recurrent. Patient most recently admitted in March 2018. Cultures grew MSSA and Pseudomonas. Patient was treated with Cipro and Keflex. Patient is currently on Teflaro and tobramycin. General surgery and Infectious Disease have been consulted will await their evaluation. Patient is NPO at midnight for possible I&D. Sepsis due to undetermined o rganism without resultant organ failure 11/16/2018 Uncontrolled hypertension Diarrhea 09/23/2018 Abscess 09/23/2018 Encounters Date Type Department Care Team Description 10/08/2024 4:15 PM CDT Office Visit [facility] at [address] [place] [address] Mi Batista, TSERING Acute bacterial sinusitis (Primary Dx) 08/18/2024 9:30 AM RETAIL STOCK CLERK Office Visit [facility] [address] [phone] Haris Braden MD Acute bacterial rhinosinusitis (Primary Dx); Muscle spasm of back; Hypothyroidism, unspecified type; Dyslipidemia associated with type 2 diabetes mellitus (HCC) from Last 3 Months Immunizations Immunization Administration Dates Next Due Influenza, Quadrivalent, Racquel l Culture-based MDCK, Preservative Free, Antibiotic Free, Intramuscular 04/30/2018 Influenza, Unspecified 05/31/2024(Deferr ed: Patient Refused),05/17/2024(Deferred: Patient Refused),05/17/2024(Deferred: Patient Refused),04/23/2023(Deferred: Patient Refused),02/20/2023(Deferred: Patient Refused),02/20/2023(Deferred: Patient Refused),02/20/2023(Deferred: Patient Refused),10/31/2022(Deferred: Patient Refused),03/22/2022(Deferred: Patient Refused),03/22/2022(Deferred: Patient Refused),01/23/2022(Deferred: Patient Refused),07/01/2021(Deferred: Patient Refused),03/22/2021(Deferred: Patient Refused),03/22/2021(Deferred: Patient Refused),02/20/2021(Deferred: Patient Refused),02/20/2021(Deferred: Patient Refused),06/26/2020(Deferred: Patient Refused),06/22/2020(Deferred: Patient Refused),05/07/2020(Deferred: Patient Refused),03/16/2020(Deferred: Patient Refused),06/22/2019(Deferred: Patient Refused),06/22/2019(Deferred: Patient Refused),03/11/2019(Deferred: Patient Refused),07/20/2018(Deferred: Patient Refused),05/10/2018(Deferred: Patient Refused),05/10/2018(Deferred: Patient Refused),04/05/2018(Deferred: Patient Refused),04/05/2018(Deferred: Patient Refused),01/25/2018(Deferred: Patient Refused),01/05/2018(Deferred: Patient Refused),06/29/2017(Deferred: Patient Refused),06/23/2017(Deferred: Patient Refused),06/22/2017(Deferred: Patient Refused),06/22/2017(Deferred: Patient Refused),06/22/2017(Deferred: Patient Refused),06/23/2016(Deferred: Patient Refused) Pneumococcal Polysaccharide PPV23 2021(Deferred: Patient Refused),10/11/2021(Deferred: Patient Refused) Surgical History Surgery Date Site/Laterality Comments CHOLECYSTECTOMY 06/22/1979 - 06/21/1980 Cholecystectomy HYSTERECTOMY OTHER SURGICAL HISTORY 03/23/2018 I & D abscess lower abdomin BLADDER SUSPENSION OTHER SURGICAL HISTORY 09/13/2018 Incision and Drainage Abdominal Wall Abscess COLONOSCOPY 03/03/2013 Medical History Medical History Date Comments Hx Other Medical 1995 bladder tie up Hx Other Medical 1993 Hystercetomy Hx Other Medical 2003 Oophorectomy Adiposity Obesity Diabetes mellitus (HCC) GERD (gastroesophageal reflu x disease) Type 2 diabetes mellitus (HCC) Abscess Ksenia infection of genital region 05/02/2016 Candidiasis of genitalia in female Candidiasis of skin 05/02/2016 Candidiasis of skin Diverticulitis of large intestine 03/06/2016 Diverticulitis large intestine w/o perforation or abscess w/o bleeding Nasopharyngitis 01/29/2016 Nasopharyngitis acute Sepsis due to undetermined o rganism without resultant organ failure (HCC) Dyslipidemia associated with type 2 diabetes mellitus (HCC) 03/16/2020 Family History Medical History Relation Name Comments Cancer Father Colon cancer Father Cancer -colon; Diabetes Father Diabetes mellit us; Suicidality Maternal Grandmother Suicide ; Atrial fibrillation Mother Depression Mother Depression; Heart disease Mother heart disease; Hypertension Mother Hypertension; Stroke Mother Cancer Paternal Grandmother Colon cancer Paternal Grandmother Diabetes Sister Diabetes mellit us; Relation Name Status Comments Father Maternal Grandmother Mother Paternal Grandmother Sister Alive Social History Tobacco Use Types Packs/Day Years Used Date Smoking Tobacco: Never Smokeless Tobacco: Never Tobacco Cessation:Counseling Given: Not Answered Alcohol Use Standard Drinks/Week Comments Yes 0 (1 standard drink = 0.6 oz pur e alcohol) rarely Humiliation, Afraid, Rape, and Kick questionnair e Answer Date Recorded Within the last year, have y ou been afraid of your partner or ex-partner? No 10/31/2022 Within the last year, have y ou been humiliated or emotionally abused in other ways by your partner or ex-partner? No Within the last year, have y ou been kicked, hit, slapped, or otherwise physically hurt by your partner or ex-partner? No 10/31/2022 Within the last year, have y ou been raped or forced to have any kind of sexual activity by your partner or ex-partner? No 10/31/2022 Social Connection and Isolat ion Panel [NHANES] Answer Date Recorded In a typical week, how many times do you talk on the phone with family, friends, or neighbors? More than three times a week 10/31/2022 How often do you get togethe r with friends or relatives? More than three times a week 10/31/2022 How often do you attend [facility] or taoist services? Never 10/31/2022 Do you belong to any clubs o r organizations such as roman catholic groups, unions, fraternal or athletic groups, or school groups? No 10/31/2022 How often do you attend meet ings of the clubs or organizations you belong to? Never 10/31/2022 Are you , , di vorced, , never , or living with a partner? 10/31/2022 AUDIT-C Answer Date Recorded Q1: How often do you have a drink containing alc ohol? Monthly or less 10/31/2022 Q2: How many drinks containi ng alcohol do you have on a typical day when you are drinking? 1 or 2 10/31/2022 Q3: How often do you have si x or more drinks on one occasion? Never 10/31/2022 Overall Financial Resource Strain (CARDIA) Answe r Date Recorded How hard is it for you to pa y for the very basics like food, housing, medical care, and heating? Not very hard 10/31/2022 PHQ-2 Answer Date Recorded PHQ-2 Total Score (If total score is 3 or more points, staff should administer the PHQ-9) 0 05/31/2024 [facility] - Occupational Stress Questionnaire Answer Date Recorded Do you feel stress - tense, restless, nervous, or anxious, or unable to sleep at night because your mind is troubled all the time - these days? Rather much 10/31/2022 Exercise Vital Sign Answer Date Recorde d On average, how many days pe r week do you engage in moderate to strenuous exercise (like a brisk walk)? 7 days 10/31/2022 On average, how many minutes do you engage in exercise at this level? 30 min 10/31/2022 Hunger Vital Sign Answer Date Recorded Within the past 12 months, y ou worried that your food would run out before you got the money to buy more. Never true 11/01/19 23 Within the past 12 months, t he food you bought just didn't last and you didn't have money to get more. Never true 10/31/2022 PRAPARE - Transportation Answer Date Re corded In the past 12 months, has l ack of transportation kept you from medical appointments or from getting medications? No 10/20 In the past 12 months, has l ack of transportation kept you from meetings, work, or from getting things needed for daily living? No 10/31/2022 Housing Stability Vital Sign Answer Alonso e Recorded In the last 12 months, was t here a time when you were not able to pay the mortgage or rent on time? No 10/31/2022 In the last 12 months, how many places have you lived? 2 10/31/2022 In the last 12 months, was t here a time when you did not have a steady place to sleep or slept in a alf (including now)? No 10/31/2022 Comments No Sex and Gender Information Value Date Recorded Sex Assigned at Not on file Legal Sex Female 11:08 AM RETAIL STOCK CLERK Gender Identity Not on file Sexual Orientation Not on file Obstetrics History Para Term AB IAB SAB Ectopic Multiple Livin g Live Births 3 3 3 Date Outcome GA Total Labor Labor/2nd/3rd Weight Sex Type Anes PTL Hanh A1 A5 Name Clin Term Term Term Last Filed Vital Signs Vital Sign Reading Time Taken Comments Blood Pressure 158/74 10/08/2024 4:16 PM CDT Pulse 78 10/08/2024 4:16 PM CDT Temperature 36.7 C (98 F) 10/08/2024 4:16 PM CDT Respiratory Rate 18 10/08/2024 4:16 PM CDT Oxygen Saturation 95% 10/08/2024 4:16 PM CDT Inhaled Oxygen Concentration - - Weight 135.7 kg (299 lb 3.2 oz) 10/08/2024 4:16 PM CDT Height 177.8 cm (5' 10 ) 08/18/2024 9:28 AM RETAIL STOCK CLERK Body Mass Index 42.93 08/18/2024 9:28 AM RETAIL STOCK CLERK Plan of Treatment Health Maintenance Due Date Last Done Comments DTaP/Tdap/Td Vaccine (1 - Tdap) 02/04/1967 Pneumococcal vaccine 65+ (1 of 2 - PCV) 02/04/1975 Zoster Vaccine (1 of 2) 02/04/2006 Breast Cancer Screening-Mammogram 05/02/2023 05/02/2022, 05/28/2017, 05/29/2016, Additional history exists Albumin Creatinine Ratio, Urine 03/19/2024 03/19/2023, 12/29/2022, 03/16/2020, Additional history exists Hemoglobin A1C 12/08/2024 06/09/2024, 09/0 09/2023, 10/22/2023, Additional history exists Lipid Panel 01/10/2025 01/11/2024, 11/0 01/2023, 12/29/2022, Additional history exists Osteoporosis Screening-Bone Density Scan 01/10/2025 Postponed from 1956 (Patient declined, but will receive in the future) eGFR 01/10/2025 01/11/2024, 110 01/2023, 12/29/2022, Additional history exists Well Visit 65+ 05/17/2025 05/17/2024, 10/31/2022 Depression Screening 05/31/2025 05/31/2024, 05/17/2024, 01/11/2024, Additional history exists Fall Risk Assessment 05/31/2025 05/31/2024, 05/17/2024, 01/11/2024, Additional history exists Foot Exam 06/09/2025 06/09/2024, 0 09/2023, 10/22/2023, Additional history exists Colon Cancer Screening-Colonoscopy 11/01/2025 11/01/2020, 03/03/2013, 03/03/2013 Dilated Eye Exam 02/23/2026 02/24/2024, 03/2021, 05/30/2019 Hepatitis C Screening Completed 03/23/2018 Influenza Vaccine Discontinued 04/30/2018 Colon Cancer Screening-CT Colonography Discontinued 11/01/2020, 03/03/2013, 03/03/2013 Colon Cancer Screening-DNA Stool Discontinued 11/01/2020, 03/03/2013, 03/03/2013 Colon Cancer Screening-FIT Discontinued 11/01, 03/26/2018, 03/03/2013, Additional history exists Colon Cancer Screening-Sigmoidoscopy Discontinued 11/01/2020, 03/03/2013, 03/03/2013 Hepatitis B Screening Completed 01/11/2024 Procedures Procedure Name Priority Date/Time Associated Diagnosis Comments POCT HEMOGLOBIN A1C Routine 06/09/2024 1 2:13 PM RETAIL STOCK CLERK Type 2 diabetes mellitus with hyperglycemia, without long-term current use of insulin (HCC) RETINAVUE SCANNER - OU - BOTH EYES Routine 02/24/2024 Type 2 diabetes mellitus with hyperglycemia, without long-term current use of insulin (HCC) EGFR Routine 01/11/2024 1:08 PM CDT Type 2 diabetes mellitus with hyperglycemia, without long-term current use of insulin (HCC) LIPID PANEL Routine 01/11/2024 1:08 PM CDT Hyperlipidemia associated with type 2 diabetes mellitus (HCC) ALBUMIN CREATININE RATIO, URINE Routine 03/19/2023 3:03 PM CDT Controlled type 2 diabetes mellitus without complication, unspecified whether parts counterman insulin use (HCC) DIAGNOSTIC MAMMOGRAM BILATERAL W ROBERT Schedule Routine, Read Routine (OP Routine) 05/02/2022 10:11 AM RETAIL STOCK CLERK Breast calcification, left COLONOSCOPY 11/01/2020 10:40 AM CDT HEPATITIS PANEL, ACUTE Routine 03/23/2018 12:32 AM CDT HM DIABETES FOOT EXAM Routine 05/18/2017 from Last 3 Months or Most Recently Relevant to Health Maintenance Results * (ABNORMAL) POCT hemoglobin A1c (06/09/2024 12:13 PM RETAIL STOCK CLERK) Hemoglobin A1C, POC 8.5 4.0 - 5.6 % Blood 06/09/2024 12:1 3 PM RETAIL STOCK CLERK us Ines Dey NP POINT OF CARE TEST ORDERABLES F inal Result * (ABNORMAL) RetinaVue Scanner - OU - Both Eyes (02/24/2024) Anatomical Region Laterality Modality Head Fundus Photograp hy Retina 02/24/2024 us Ines Dey NP OPHTH PHOTOGRAPHY Final Result * eGFR (01/11/2024 1:08 PM CDT) eGFR >90 >=60 mL/min/1. 73 m2 Comment: Interpretive Data Reference Interval Normal >/= 90 mL/min/1.73m2 Mildly decreased* 60 - 89 mL/min/1.73m2 Mildly to moderately decreased 45 - 59 mL/min/1.73m2 Moderately to severely decreased 30 - 44 mL/min/1.73m2 Severely decreased 15 - 29 mL/min/1.73m2 Kidney Failure < 15 mL/min/1.73m2 *Relative to young adult level Estimated glomerular filtration rate is determined by the 2020 CKD-EPI equation recommended by the National Kidney Foundation (A Unifying Approach to GFR Estimation: Recommendations of the NKF-ASK Task Force on Reassessing the Inclusion of Race in Diagnosing Kidney Disease, JASN 2020). The CKD-EPI equation should not be used for patients with unstable renal function and has not been validated in children and those over 70. Current interpretive data was last reviewed 2021. Testing performed by: [facility], [address] [place] [address]., [id number] Blood 01/11/2024 1:08 PM CDT 01/11/2024 5:39 PM CDT us Brandee Ahn NP LAB BLOOD ORDERABLES Final Resul t [facility] [place] [facility] Department [place] [address] * (ABNORMAL) Lipid panel (01/11/2024 1:08 PM CDT) Cholesterol 190 30 - 199 mg/dL Comment: Interpretive Data Ages < or = 19 years Acceptable: <170 mg/dL Borderline high: 170-199 mg/dL High: >or= 200 mg/dL Ages > or = 20 years Desirable: <200 mg/dL Borderline high: 200-239 mg/dL High: >or= 240 mg/dL Literature References: 1. Expert Panel on Integrated Guidelines for Cardiovascular Health and Risk Reduction in Children and Adolescents. Pediatrics 2011;128:S213 2. NCEP Expert Panel. Circulation 2004;110:227 Current Interpretive Data was last revised on 2018. Testing performed by: [facility], [address] [place] [address]., [id number] Triglycerides 153(H) <=149 mg/dL [facility] ([facility]AN) Comment: Interpretive Data Ages < or = 9 years Acceptable: <75 mg/dL Borderline high: 75-99 mg/dL High: >or= 100 mg/dL Ages 10 to 20 years Acceptable: <90 mg/dL Borderline high: 90-129 mg/dL High: >or= 130 mg/dL Ages > or = 20 years Desirable: <150 mg/dL Borderline high: 150-199 mg/dL High: 200-499 mg/dL Very high: >or= 499 mg/dL Literature References: 1. Expert Panel on Integrated Guidelines for Cardiovascular Health and Risk Reduction in Children and Adolescents. Pediatrics 2011;128:S213 2. NCEP Expert Panel. Circulation 2003;110:227 Current Interpretive Data was last revised on 2018. Testing performed by: [facility], [address] [place] [address]., [id number] HDL 47 >=40 mg/dL [facility] ([facility]) Comment: Interpretive Data Ages < or = 19 years Acceptable: >45 mg/dL Borderline low: 40-45 mg/dL Low: <40 mg/dL Ages > or = 20 years Desirable: >or= 60 mg/dL Low: <40 mg/dL Literature References: 1. Expert Panel on Integrated Guidelines for Cardiovascular Health and Risk Reduction in Children and Adolescents. Pediatrics 2011;128:S213 2. NCEP Expert Panel. Circulation 2003;110:227 Current Interpretive Data was last revised on 2018. Testing performed by: [facility], [address] [place] [address]., [id number] LDL, calculated 112 <=129 mg/dL [facility] ([facility]) Comment: Interpretive Data Ages < or = 19 years Acceptable: <110 mg/dL Borderline high: 110-129 mg/dL High: >or= 130 mg/dL Ages > or = 20 years Optimal: <100 mg/dL Near optimal: 100-129 mg/dL Borderline high: 130-159 mg/dL High: >160 mg/dL Literature References: 1. Expert Panel on Integrated Guidelines for Cardiovascular Health and Risk Reduction in Children and Adolescents. Pediatrics 2011;128:S213 2. NCEP Expert Panel. Circulation 2004;110:227 Current Interpretive Data was last revised on 2018. Testing performed by: [facility], [address] [place] [address]., [id number] Non-HDL Cholesterol 143 mg/dL [facility]CHO[facility] (RYAN) Comment: Interpretive Data Ages < or = 19 years Acceptable: <120 mg/dL Borderline high: 120-144 mg/dL High: >145 mg/dL Ages > or = 20 years When triglycerides are >200 mg/dL, Non-HDL cholesterol is a secondary target of therapy with treatment goals that are 30 mg/dL greater than the LDL cholesterol target. Literature References: 1. Expert Panel on Integrated Guidelines for Cardiovascular Health and Risk Reduction in Children and Adolescents. Pediatrics 2011;128:S213 2. NCEP Expert Panel. Circulation 2004;110:227 Current Interpretive Data was last revised on 2018. Testing performed by: [facility], [address] [place] [address]., [id number] Chol/HDL ratio 4 SAMANTA OCHOA ([place]AN) Comment:Testing performed by : [facility], [address] [place] [address]., [id number] Blood 01/11/2024 1:08 PM CDT 01/11/2024 5:31 PM CDT us Brandee Ahn NP LAB BLOOD ORDERABLES Final Resul t EVITA OCHOA ([place]) [facility] Department [place] [address] * (ABNORMAL) Albumin Creatinine Ratio, Urine (03/19/2023 3:03 PM CDT) Albumin Ur 13.2 mg/L EVITA Comment: Interpretive Data No reference range established. Current interpretive data was last revised 2018. Creatinine Ur 44.5 mg/dL EVITA Comment: Interpretive Data No reference range established. Current interpretive data was last revised 2018. Albumin Creatinine Ratio, Ur 30(H) 1 - 29 mg/g EVITA DUMAS Urine 03/19/2023 3:03 PM CDT 03/19/2023 5:42 PM CDT us Brandee Ahn NP LAB URINE ORDERABLES Final Resul t EVITA DUMAS [address] Department [place] [address] * Diagnostic Mammogram Bilateral W Robert (05/02/2022 10:11 AM RETAIL STOCK CLERK) Anatomical Region Laterality Modality Breast Bilateral Mammography 05/02/2022 12:0 7 PM RETAIL STOCK CLERK Impressions 05/02/2022 12:07 PM RETAIL STOCK CLERK Two probably benign masses in the left breast at the 1:00 and 2:00 positions. Recommend diagnostic left breast mammogram and ultrasound in 6 months. BI-RADS: 3 - Probably benign I discussed the findings and recommendations with the patient today. Electronically signed by: Bhanu Pan M.D. Narrative 05/02/2022 12:07 PM RETAIL STOCK CLERK EXAMINATION: DIAGNOSTIC MAMMOGRAM BILATERAL W ROBERT, US BREAST LEFT LIMITED ORDERING HEALTHCARE PROVIDER: ILDA VERDUZCO HISTORY: Bilateral breast diagnostic mammography. Asymmetry with calcifications in the left breast on CT from 02/10/2022 COMPARISON: 05/28/2017, 05/29/2016, 05/31/[address] from 02/10/2022 TECHNIQUE: CC and MLO views of the Bilateral breasts and CC and MLO spot compression views of the left breast were obtained with digital technique using breast tomosynthesis with C view. Computer aided detection was utilized. Motion was noted on the right breast examinations by the technologist, but repeat images were refused by the patient due to discomfort. Multiple color Doppler and grayscale images of the left breast were obtained FINDINGS: Mammogram: There is scattered fibroglandular tissue At the 12 to 1 o'clock position of the left breast at middle depth there is an oval, 9 to 10 mm oval circumscribed mass. In the upper left breast on the MLO and ML view there is a approximately 1.0 cm low-density asymmetry at middle depth, localizing to the slightly lateral breast on tomosynthesis images. This was equivocally on the prior exams, which did not have tomosynthesis. There are no suspicious masses, calcifications, or architectural distortion in the right breast. Ultrasound: Targeted ultrasound of the left breast at the 1 o'clock position, 4 cm from the nipple demonstrates an oval, hypoechoic mass with parallel orientation, circumscribed margins, few thin internal septations, mild posterior acoustic enhancement and no evidence of internal blood flow by color Doppler imaging. This mass measures 7 x 11 x 7 mm. This is favored to be a complicated cyst and likely corresponds to the mammographic asymmetry on the MLO view. Targeted ultrasound of the 2 o'clock position, 3 cm in the nipple demonstrates an oval, hypoechoic mass with parallel orientation, mild posterior acoustic enhancement, a thin internal septation and no evidence of internal blood flow by color Doppler imaging. This mass measures 9 x 8 x 7 mm. This is favored to be a complicated cyst and likely corresponds to the stable mammographic mass. us Ilda Verduzco MD IMG MAMMO PROCEDURES Tarah l Result * COLONOSCOPY (11/01/2020 10:40 AM CDT) Anatomical Region Laterality Modality Other Narrative Procedure Note Tomás Farrell MD - 11/01/2020 10:40 AM CDT [facility] Patient Name: Nelida Judd Procedure Date: 11/01/2020 10:40 AM Date of : 1955 Admit Type: Outpatient Age: 65 Gender: Female Attending MD: Tomás Farrell M.D. Room: [facility] ENDOSCOPY ROOM 2 Note Status: Finalized Patient Profile: Refer to note in patient chart for documentation of history and physical. Procedure: Colonoscopy Indications: Family history of colon cancer in a first-degree relative before age 60 years, Last colonoscopy: February 2013 Referring MD: Ilda Verduzco M.D. Providers: Tomás Farrell M.D. Impression: - Hemorrhoids found on perianal exam. - Diverticulosis in the sigmoid colon. - The examination was otherwise normal. - No specimens collected. Recommendation: - Discharge patient to home. - Resume previous diet. - Continue present medications. - Repeat colonoscopy in 5 years for surveillance. - Return to primary care physician as previously scheduled. Medicines: Propofol per Anesthesia Complications: No immediate complications. Estimated Blood Loss: Estimated blood loss: none. Procedure: Pre-Anesthesia Assessment: - This assessment was completed [Time ofAssessment] prior to the administration of sedation. The benefits, risks and alternatives of theprocedure and sedation were discussed and informed consentwas obtained. All questions were answered. Please referto the signed informed consent document in the medical record. The bowel preparation used was Miralax via single dose instruction. The bowel preparation used was bisacodyl tablets via single dose instruction.The scope was passed under direct vision. TheColonoscope [id number] was introduced through the anus and advanced to the the cecum, identified by appendiceal orifice and ileocecal valve. The colonoscopy was performed without difficulty. The patient tolerated the procedure well. The qualityof the bowel preparation was good. Findings: Hemorrhoids were found on perianal exam. Multiple small and large-mouthed diverticula were found in thesigmoid colon. The exam was otherwise without abnormality. Electronically signed by Tomás Farrell M.D. Tomás Farrell M.D. 11/01/2020 11:58:00 AM Number of Addenda: 0 Note Initiated On: 11/01/2020 10:40 AM Procedure Code(s): --- Professional --- [address]7417, Colonoscopy, flexible; diagnostic, including collection of specimen(s) by brushing or washing, when performed (separateprocedure) Diagnosis Code(s): --- Professional --- K57.30, Diverticulosis of large intestine without perforation orabscess without bleeding Z80.0, Family history of malignant neoplasm of digestive organs K64.9, Unspecified hemorrhoids CPT copyright 2019 [employer]. All rights reserved. The codes documented in this report are preliminary and upon wood and hardware outfitter reviewmay be revised to meet current compliance requirements. Recognized by the [employer] for promoting quality in endoscopy us Tomás Farrell MD ENDOSCOPY PROCEDURES Final Re sult * Hepatitis panel, acute (03/23/2018 12:32 AM CDT) Hep A IgM Negative Negative EVITA OCHOA (RYAN) Comment:Testing performed by : [address] [address] Hep B core IgM Negative Negative [facility] ([place]) Comment:Testing performed by : [facility], [address] [place] [address], [id number] Hep C Ab Negative Negative EVITA OCHOA ([place]) Comment:Testing performed by : [facility], [address] [place] [address], [id number] HepBsAg Negative Negative EVITA OCHOA ([place]) Comment:Testing performed by : [address], [address] Blood specimen (specimen) 03/23/2018 12:32 AM CDT 03/23/2018 3:23 PM CDT Narrative EVITA OCHOA ([place]) - 03/23/2018 6:06 PM CDT us Sangeeta Art MD LAB MICROBIOLOGY - GENER AL ORDERABLES Final Result EVITA OCHOA ([place]) [facility] Department [place] [address] * DIABETES FOOT EXAM (05/18/2017) Diabetic Foot Exam Abnormal SCRIBED DM FOOT SITES SENSED 3 Comment:3:6 us Historical Provider MD HEALTH MAINTENANCE Final Result from Last 3 Months or Most Recently Relevant to Health Maintenance Insurance [facility]NA [id number] MED[facility]ARE AETNA SENIOR SUPPLEMENT AETNA [facility] [id number] MEDICARE [employer] [address] Advance Directives For more information, please contact: [phone] * Full Code (Latest Code Status on File) Date Activated Date Inactivated Comments 11/01/2020 10:26 AM 11/01/2020 4:46 PM * Full Code Date Activated Date Inactivated Comments 11/01/2020 10:26 AM 11/01/2020 10:26 AM * Full Code Date Activated Date Inactivated Comments 09/12/2018 11:44 AM 09/16/2018 9:08 PM * Full Code Date Activated Date Inactivated Comments 03/23/2018 4:59 AM 03/30/2018 3:27 PM Care Teams [employer] Steep Tender Relationship Specialty Start Date End Date Brandee Ahn NP PCP - General Family Medicine 10/31/22 Michael Bedoya MD Surgeon General Surgery 03/30/18 Jag Andres MD Consulting Physician Infectious Diseases 03/30/18 Berenice Rowan MD Consulting Physician Neurology 03/30/18
--- OUTSIDE RECORDS SUMMARY | 2024-10-13 17:03 | XMS_ITS | Referral Summary ---
Author Organization [facility] Address [address] [place] [address] Care Team Providers Care Ux Design Manager Name Role Phone Michael Bedoya MD Unavailable [phone] Jag Andres MD Unavailable [phone] Berenice Rowan MD Unavailable Brandee Ahn NP Primary Care Provider [phone] Encounters Date Type Department Care Team Description 10/08/2024 4:15 PM CDT Office Visit [facility] at [address] [address] Mi Batista NP Acute bacterial sinusitis (Primary Dx) 08/18/2024 9:30 AM SEWING TRIMMER Office Visit [facility] [address] [address] Haris Braden MD Acute bacterial rhinosinusitis (Primary Dx); Muscle spasm of back; Hypothyroidism, unspecified type; Dyslipidemia associated with type 2 diabetes mellitus (HCC) from Last 3 Months Allergies Active Allergy Reactions Criticality Noted Date [...] hyperglycemia, without long-term current use of insulin ([facility]) Check blood sugar 3x times a day E11.65 100 each 5 3 Active blood-glucose meter kitIndications:T ype 2 diabetes mellitus with hyperglycemia, without long-term current use of insulin ([facility]) Use to test blood sugars 3 times daily e11.65 1 kit 1 3 Active pen needle, diabetic (1st Tier Unifine Pentips Plus) 31 gauge x 3/16 needleIndication s:Type 2 diabetes mellitus with hyperglycemia, without long-term current use of insulin ([facility]) USE TO INJECT insulin 4 TIMES A [...] hyperglycemia, without long-term current use of insulin ([facility]) Inject 30 Units under the skin daily [...] 05/17/2024 Assessment & Plan (05/17/2024 11:07 AM SEWING TRIMMER): Moods well controlled and stable. Will continue on Seroquel and Lexapro. Will continue to monitor. Interstitial cystitis 01/11/2024 Assessment & Plan (01/11/2024 1:50 PM CDT): Seeing urology at [facility] Having bladder intillations Syncope and collapse 06/03/2023 Assessment & Plan (06/03/2023 3:23 PM SEWING TRIMMER): Found unresponsive on 05/27 where her blood glucose was 501. Transferred to [place] where she spend 2 nights Appt with endo on 07/08 to discuss continuous glucose monitor Followed by endo-currently on Lyumjev and Basaglar Muscle spasm of back 05/05/2023 Assessment & Plan (05/17/2024 11:07 AM SEWING TRIMMER): Will continue with Cyclobenzaprine PRN. Reports spasm [...] 10/11 Assessment & Plan (05/17/2024 11:06 AM SEWING TRIMMER): In regard to health maintenance, Colonoscopy- Declined [...] healthier, we can set up appointment with selling underwriter/pin maker. Have an active lifestyle, strive for 30 [...] only. Hyperlipidemia associated with type 2 diabetes m jayce 07/11/2021 Assessment & Plan (06/09/2024 1:14 PM SEWING TRIMMER): This is a chronic condition which is not at goal . Goal is LDL less than 70 Continue pravastatin Encouraged to eat healthy, include fresh fruits and vegetables daily and avoid eating fried foods more than once per week. Assessment & Plan (05/17/2024 11:04 AM SEWING TRIMMER): Lipid panel stable and will continue to [...] prescribed. Assessment & Plan (07/08/2023 4:47 PM SEWING TRIMMER): This is a chronic condition which is not at goal of LDL less than 70 Continue pravastatin Encouraged to eat healthy, include fresh fruits and vegetables daily and avoid eating fried foods more than once per week. Encouraged to take medications as prescribed. Assessment & Plan (04/29/2023 3:27 PM SEWING TRIMMER): This is a chronic condition which is [...] prescribed. Assessment & Plan (07/30/2022 8:13 AM SEWING TRIMMER): This is a chronic condition which is not at goal of LDL less than 70 Continue pravastatin Encouraged to eat healthy, include fresh fruits and vegetables daily and avoid eating fried foods more than once per week. Encouraged to take medications as prescribed. Assessment & Plan (06/18/2022 10:10 AM SEWING TRIMMER): This is a chronic condition which is [...] 07/11/2021 Assessment & Plan (07/11/2021 5:41 PM SEWING TRIMMER): Secondary to uncontrolled diabetes. No evidence of infection on urinalysis. Vitamin D deficiency 07/01/2021 Assessment & Plan (05/17/2024 11:04 AM SEWING TRIMMER): Will recheck Vitamin D and continue to monitor. Family history of colon cancer in father 021 Overview (10/12/2020): Added automatically from request for surgery [id number] Encounter for colonoscopy in patient with family history of colon cancer 10/12/2020 Overview (10/12/2020): Added automatically from request for surgery [id number] Class 3 severe obesity due t o excess calories with serious comorbidity and body mass index (BMI) of 40.0 to 44.9 in adult 09/24/2020 Assessment & Plan (06/09/2024 1:14 PM SEWING TRIMMER): This is a chronic condition which continues [...] sessions. Assessment & Plan (05/31/2024 11:31 AM SEWING TRIMMER): Encouraged heart healthy diet and lifestyle. Advised 150 min/week of aerobic exercise. Assessment & Plan (05/17/2024 11:03 AM SEWING TRIMMER): Encouraged heart healthy diet and lifestyle. Advised [...] minutes sessions. Encouraged to follow up with [facility] to receive Ozempic from the patient assistance program Assessment & Plan (07/08/2023 4:49 PM SEWING TRIMMER): This is a chronic condition which continues 2 lb weight loss since last office visit Still attempting to get Ozempic from [facility] [employer] patient assistance program Encouraged healthy eating, portion [...] 05/07/2020 Assessment & Plan (05/17/2024 11:03 AM SEWING TRIMMER): Sleep continues to be a problem. Will start on PRN xanax nightly to aid in sleep. Will follow-up in 3 months. Assessment & Plan (01/11/2024 1:51 PM CDT): Chronic, not well controlled Did not have luck with Trazodone or Ambien Seroquel 25-50 mg nightly as needed Assessment & Plan (05/05/2023 1:23 PM SEWING TRIMMER): Patient still having difficulty sleeping; states trazodone [...] activity. Assessment & Plan (06/26/2020 8:26 PM SEWING TRIMMER): Trazodone did not help w/sleep schedule & also caused hang-over feeling. Agreeable to trial ambien 5mg qhs. Reviewed med SE & scheduling. Will call/rtc if no improvement w/ambien. Aware that she has to call monthly for refill request; needs to be seen every 3 months for refill. Reviewed good sleep hygiene: no electronics, cool/dark room, warm shower/tub prior to bedtime, no caffeine after 3-4p, no exercise 3hr prior to sleep. Stressed need to increase activity (has started). Assessment & Plan (05/07/2020 6:19 PM SEWING TRIMMER): Discussed needing to readjust wake/sleep schedule (likened [...] Nasal saline spray (Simply saline, Little Remedies, [place], [place]) 2 second sprays or 2 squeezes into [...] Nasal saline spray (Simply saline, Little Remedies, [place], [place]) 2 second sprays or 2 squeezes into [...] Plan (09/24/2020 11:22 PM CDT): Referral to [facility] for repeat colonoscopy. Had last 2012, and was to repeat in 2018. Ordered for [facility] at this time. Will fax letter to her insurance per her information to inform why repeat colonoscopy needed. Contact info for [facility] given to Mrs Judd. Assessment & Plan (06/26/2020 8:19 PM SEWING TRIMMER): States that insurnace requires her to have form faxed to get prior auth for colonoscopy. Forgot at home today. Will bring in to be filled out to get auth for colonoscopy. Assessment & Plan (06/28/2019 10:08 PM SEWING TRIMMER): Referral to [facility] for colonoscopy. Aware that [facility] will contact her to set up testing. Localized edema 11/16/2018 Assessment & Plan (03/16/2020 5:41 PM CDT): Discussed compression socks, feet elevation, foot pumps/ankle rolls. Lasix refilled. Reviewed med SE & scheduling. Assessment & Plan (11/16/2018 2:01 PM CDT): Lasix refilled. Aware to keep LE elevated when sitting. Discussed compression hose; is wearing on plane to [place] & back 11/28/18. Bilateral hearing loss 09/23/2018 Assessment & Plan (02/21/2020 8:37 PM CDT): Avoid ear cleaning techniques Avoid water to ears Hearing test - call with results Assessment & Plan (09/23/2018 11:19 AM CDT): Declines referral to core driller helper and/or ENT at this time. Will call if she desires referral. Refused influenza vaccine 05/10/2018 Assessment & Plan (05/07/2020 6:16 PM SEWING TRIMMER): Discussed and the patient refuses immunization today. [...] vulnerable. Assessment & Plan (06/28/2019 10:04 PM SEWING TRIMMER): Discussed and the patient refuses immunization today. [...] 04/07/2018 Assessment & Plan (06/09/2024 1:13 PM SEWING TRIMMER): This is a chronic condition which is [...] day. Assessment & Plan (05/17/2024 11:02 AM SEWING TRIMMER): Euthyroid. Will continue to monitor. Will continue with Synthroid. Will continue to follow with Endocrinology. Assessment & Plan (07/08/2023 4:48 PM SEWING TRIMMER): This is a chronic condition which is [...] appointment. Assessment & Plan (06/26/2020 8:24 PM SEWING TRIMMER): TSH/T4 ordered; will contact with results when received. Reviewed med SE & scheduling. Reviewed sxs hypo/hyperthyroidism. Will recheck TFTs with next labs. Assessment & Plan (05/07/2020 6:16 PM SEWING TRIMMER): Lab Results Component Value Date TSH 1.35 [...] time. Assessment & Plan (06/28/2019 10:03 PM SEWING TRIMMER): TSH/T4 ordered; will call w/results when rec'd. [...] bleeding Assessment & Plan (05/31/2024 11:33 AM SEWING TRIMMER): Improving. Has 3 days of Augmentin left. She is starting to get relief. No blood in stool. She is having some abdominal pain that is gas related and baseline. We will continue to monitor. Type 2 diabetes mellitus wit h hyperglycemia, with long-term current use of insulin Assessment & Plan (06/09/2024 1:13 PM SEWING TRIMMER): This is a chronic condition which is [...] to meals 3x/day. We will apply for [employer] program to receive Basaglar/Luymjev Does not tolerate-metformin- diarrhea. Reports a history of IBS. Could not afford ozempic- not on formulary. attempting to get Ozempic from [employer] patient assistance program. Monitor blood sugar with CGM. Does not have CGM on today. States that a.m. blood sugars are running in the 200s.. Encouraged annual eye exam. last dilated eye exam was [facility]. Monofilament foot exam completed. Protective senses -intact eGFR- greater than 90 Kidney function-normal Urine microalbumin/creatinine ratio - at goal. Goal is <30 not treated with PACO/ARB Assessment & Plan (05/17/2024 11:02 AM SEWING TRIMMER): Lab Results Component Value Date HGBA1C 7.4 [...] day prior to meals. Receives insulin from [employer] Monitor blood sugar continuously with cgm. Encouraged annual eye exam. Monofilament foot exam completed. Protective senses intact Personally reviewed CMP eGFR- 1O2 Kidney function-normal Urine microalbumin/creatinine ratio - at goal. Goal is <30 not treated with PACO/ARB B/P today- at goal . Goal is <140/90 Assessment & Plan (07/08/2023 4:47 PM SEWING TRIMMER): This is a chronic condition which is poorly controlled, not at goal of less than 8%. Personally reviewed most recent A1c - 05/27/23 A1c- 9.8% at [facility]. See media Lab Results Component Value Date HGBA1C 10.4 (H) 04/29/2023 Personally reviewed POC blood sugar- not at goal 80-180 Lab Results Component Value Date POCGLU 241 07/08/2023 Medication- continue basaglar 30 units daily, continue lyumjev 10 units 3 times a prior to meals 3x/day. attempting to get Ozempic from [employer] [employer], an [employer] patient assistance program. Monitor blood sugar continuously [...] pravastatin. Assessment & Plan (06/03/2023 3:26 PM SEWING TRIMMER): Uncontrolled; was in hospital from 05/27-05/29 for glucose of 501. Since discharge patient states she has been running under 200 Follow up scheduled with endo on 07/08 Assessment & Plan (04/29/2023 3:26 PM SEWING TRIMMER): This is a chronic condition which is [...] 3x/day. will attempt to get Ozempic from [employer] patient assistance program once application is filled [...] daily, will attempt to get Ozempic from [employer] patient assistance program. Application filled out Monitor [...] pravastatin Assessment & Plan (07/30/2022 8:55 AM SEWING TRIMMER): This is a chronic condition which is improving as per blood sugars and close to goal of less than 7%. Personally reviewed most recent A1c - Lab Results Component Value Date HGBA1C 11.3 (H) 06/03/2022 Personally reviewed POC blood sugar- 237, not at goal 80-180 Medication- Continue Lantus 40 units daily. Start trulicity 0.75 mg weekly- if accepted in [employer] cares program. She provided [employer] cares program paperwork but the financial disclosure was [...] pravastatin Assessment & Plan (06/18/2022 10:09 AM SEWING TRIMMER): This is a chronic condition which is [...] Diabetes Complications History of macrovascular disease (CVA, PA, PVD) is not Present. Complications secondary to [...] HGBA1C 8.4 (H) 06/13/2020 Recommended evaluation with oil winterizer, patient declines. Stressed the importance of checking [...] diabetes. Assessment & Plan (06/26/2020 8:28 PM SEWING TRIMMER): Lab Results Component Value Date HGBA1C 8.4 [...] evaluation. Assessment & Plan (05/07/2020 6:18 PM SEWING TRIMMER): Lab Results Component Value Date HGBA1C 10.6 [...] received. Assessment & Plan (06/28/2019 10:02 PM SEWING TRIMMER): Has not been following diet nor exercising. [...] 09/24/2020 Assessment & Plan (06/26/2020 8:23 PM SEWING TRIMMER): Mammogram order given; will call with results when received. Encouraged to perform monthly SBE. Please call [facility] Scheduling department at [phone] to schedule your mammogram.. Dyslipidemia associated with type 2 diabetes mellitus ([facility]/HCC) 03/16/2020 07/30/2022 Assessment & Plan (10/11/2021 9:14 AM CDT): 06/2021 TC 188 HDL 38 TRG 195 LDL 111 Assessment & Plan (09/24/2020 4:02 PM CDT): Copy of results given to Nelida Judd. Reviewed results from 09/21/20 at time of appointment. 03/16/20 HM=237 HDL=37 FS=306 PTK=555 TC/HDL=5.0 06/13/20 FW=870 HDL=44 XY=131 ECJ=231 TCH/HDL=4.0 09/21/20 IL=696 HDL=46 FN=931 LQM=466 TC/HDL=4.0 The 10-year ASCVD risk score (Gilbycaroline LYNN Jr., et al., 2013) is: 14.8% [...] flags. Assessment & Plan (06/26/2020 8:28 PM SEWING TRIMMER): 06/17/19 di=185 fk=814 hdl=52 ldl=89 tc/hdl=3 a1c=7.6% 03/16/20 ID=126 HDL=37 ST=259 GNL=407 TC/HDL=5.0 06/13/20 AP=238 HDL=44 OS=134 GIO=636 TCH/HDL=4.0 Copy of results given to Nelida [...] red flags. The 10-year ASCVD risk score (Gilbycaroline LYNN Jr., et al., 2013) is: 14.3% Values used to calculate the score: Age: 65 years Sex: Female Is Non- : No Diabetic: Yes Tobacco smoker: No Systolic Blood Pressure: 132 mmHg Is BP treated: Yes HDL Cholesterol: 44 mg/dL Total Cholesterol: 188 mg/dL Assessment & Plan (05/07/2020 6:14 PM SEWING TRIMMER): We will check labs and make adjustments [...] stress. Assessment & Plan (06/26/2020 8:23 PM SEWING TRIMMER): Copy of results given to Nelida Judd. [...] stress. Assessment & Plan (05/07/2020 6:14 PM SEWING TRIMMER): The blood pressure is under good control. [...] 020 Assessment & Plan (06/28/2019 10:07 PM SEWING TRIMMER): We will check labs and make adjustments [...] mesh removed by Dr Iveth Green at [facility]. Must have cardiac clearance completed first. Had appt w/Dr Paul yesterday. Mrs Judd reports EKG completed and normal (no copy available). Is to have echo prior to hazardous materials driver giving clearance. Awaiting call from his office. [...] 05/11/201803/16 Assessment & Plan (06/28/2019 10:04 PM SEWING TRIMMER): The blood pressure is under good control. [...] 05/17/2024 Assessment & Plan (06/26/2020 8:25 PM SEWING TRIMMER): Has increased activity. Has lost 8# since last appt in April. Congratulated on wt loss; encouraged to continue. Reviewed need to lose weight, reviewed health benefits. Reviewed recommendations for daily intake & activity 20-30 minutes/day. Discussed healthy diet and importance of regular physical activity. Assessment & Plan (05/07/2020 6:16 PM SEWING TRIMMER): In bed watching TV. Remains very sedentary. [...] other calcium sources. Consider making short and rodent exterminator goal to track your progress. Keep a diet/exercise record or on line resource to track calories in and out. Discuss your efforts with me at the next visit. Look up [employer] - this is a free calorie tracking [...] other calcium sources. Consider making short and rodent exterminator goal to track your progress. Keep a diet/exercise record or on line resource to track calories in and out. Discuss your efforts with me at the next visit. Look up [employer] - this is a free calorie tracking jon. Discussed healthy diet and importance of regular physical activity. Assessment & Plan (06/28/2019 10:03 PM SEWING TRIMMER): Reviewed need to lose weight, reviewed health [...] of regular physical activity. Acute frontal sinusitis 10/09/201609/2018 Overview (11/14/2016): Acute recurrent frontal sinusitis Acute [...] flags. Assessment & Plan (06/26/2020 8:20 PM SEWING TRIMMER): lexapro 20mg daily. Mood improved, stable. Feels that lexapro has improved depression. Could not tolerate trazodone--felt like hung over when taking for the short time she actually tried. Reports good control of depression w/current regimen. No changes to bemade at this time. Reviewed med Ses & scheduling. Reviewed red flags. Assessment & Plan (05/07/2020 6:14 PM SEWING TRIMMER): lexapro 20mg somewhat helpful. Mood has improved [...] flags. Assessment & Plan (06/28/2019 10:01 PM SEWING TRIMMER): Reports good control of depression w/current regimen. [...] 11/16/2018 Uncontrolled hypertension Diarrhea 09/23/2018 Abscess 09/23/2018 Immunizations Immunization Administration Dates Next Due Influenza, [...] Polysaccharide PPV23 2021(Deferred: Patient Refused),10/11/2021(Deferred: Patient Refused) Social History Tobacco Use Types Packs/Day Years [...] week 10/31/2022 How often do you attend chur ch or methodist services? Never 10/31/2022 Do you belong to any clubs o r organizations such as mormonism groups, unions, fraternal or athletic groups, or [...] staff should administer the PHQ-9) 0 05/31/2024 [facility]ational Stress Questionnaire Answer Date [...] place to sleep or slept in a long term (including now)? No 10/31/2022 Comments No Sex and Gender Information Value Date Recorded Sex Assigned at Not on file Legal Sex Female 11:08 AM SEWING TRIMMER Gender Identity Not on file Sexual Orientation Not on file Last Filed Vital Signs Vital Sign Reading [...] cm (5' 10 ) 08/18/2024 9:28 AM SEWING TRIMMER Body Mass Index 42.93 08/18/2024 9:28 AM SEWING TRIMMER Plan of Treatment Not on file Procedures Procedure Name Priority Date/Time Associated Diagnosis Comments POCT HEMOGLOBIN A1C Routine 06/09/2024 1 2:13 PM SEWING TRIMMER Type 2 diabetes mellitus with hyperglycemia, without [...] 2 diabetes mellitus without complication, unspecified whether care home insulin use (HCC) DIAGNOSTIC MAMMOGRAM BILATERAL W ROBERT Schedule Routine, Read Routine (OP Routine) 05/02/2022 10:11 AM SEWING TRIMMER Breast calcification, left COLONOSCOPY 11/01/2020 10:40 AM CDT HEPATITIS PANEL, ACUTE Routine 03/23/2018 12:32 AM CDT DIABETES FOOT EXAM Routine 05/18/2017 from Last 3 Months or Most Recently Relevant to Health Maintenance Results * (ABNORMAL) POCT hemoglobin A1c (06/09/2024 12:13 PM SEWING TRIMMER) Hemoglobin A1C, POC 8.5 4.0 - 5.6 % Blood 06/09/2024 12:1 3 PM SEWING TRIMMER us Ines Dey NP POINT OF CARE [...] last reviewed 2021. Testing performed by: [facility], [address] [place] [address], [place]., [address] Blood 01/11/2024 1:08 PM CDT 01/11/2024 5:39 PM CDT us Brandee Ahn NP LAB BLOOD ORDERABLES Final Resul t EVITA OCHOA [place]) [facility] Department [place] [address] * (ABNORMAL) Lipid panel (01/11/2024 [...] revised on 2018. Testing performed by: [facility], [address] [place] [address]., [id number] Triglycerides 153(H) <=149 mg/dL [facility] (RYAN) Comment: Interpretive Data [...] revised on 2018. Testing performed by: [facility], [address] [place] [address]., [address] HDL 47 >=40 mg/dL [facility] (RYAN) Comment: Interpretive Data [...] revised on 2018. Testing performed by: [facility], [address] [place] [address]., [address] LDL, calculated 112 <=129 mg/dL [facility] [...] revised on 2018. Testing performed by: [facility], [address] [place] [address]., [address] Non-HDL Cholesterol 143 mg/dL EVITA OCHOA (RYAN) [...] revised on 2018. Testing performed by: [facility], [address] [place] [address]., [address] Chol/HDL ratio 4 SAMANTA OCHOA (RYAN) Comment:Testing performed by : [facility], [address] [place] [address]., [id number] Blood 01/11/2024 1:08 PM CDT 01/11/2024 5:31 PM CDT us Brandee Ahn NP LAB BLOOD ORDERABLES Final Resul t EVITA OCHOA (RYAN) [facility] Department [place] [address] * (ABNORMAL) Albumin Creatinine Ratio, Urine (03/19/2023 3:03 PM CDT) Albumin Ur 13.2 mg/L EVITA DUMAS Comment: Interpretive Data No reference range established. [...] LAB URINE ORDERABLES Final Resul t EVITA [address] [address] [place] [address] * Diagnostic Mammogram Bilateral W Robert (05/02/2022 10:11 AM SEWING TRIMMER) Anatomical Region Laterality Modality Breast Bilateral Mammography 05/02/2022 12:0 7 PM SEWING TRIMMER Impressions 05/02/2022 12:07 PM SEWING TRIMMER Two probably benign masses in the left breast at the 1:00 and 2:00 positions. Recommend diagnostic left breast mammogram and ultrasound in 6 months. BI-RADS: 3 - Probably benign I discussed the findings and recommendations with the patient today. Electronically signed by: Bhanu Pan M.D. Narrative 05/02/2022 12:07 PM SEWING TRIMMER EXAMINATION: DIAGNOSTIC MAMMOGRAM BILATERAL W ROBERT, US [...] stable mammographic mass. us Ilda Verduzco MD IM MAMMO PROCEDURES Tarah l Result * COLONOSCOPY (11/01/2020 10:40 AM CDT) Anatomical Region Laterality Modality Other Narrative Procedure Note Tomás Farrell MD - 11/01/2020 10:40 AM CDT [facility] Patient Name: Nelida Judd Procedure Date: 11/01/2020 10:40 AM Date of : 1955 Admit Type: Outpatient Age: 65 Gender: Female Attending MD: Tomás Farrell M.D. Room: [facility] ENDOSCOPY ROOM 2 Note Status: Finalized Patient Profile: Refer to note in patient chart for documentation of history and physical. Procedure: Colonoscopy Indications: Family history of colon cancer in a first-degree relative before age 60 years, Last colonoscopy: February 2013 Referring MD: Ilda Verduzco M.D. Providers: Toáms Farrell M.D. Impression: - Hemorrhoids found on [...] scope was passed under direct vision. TheColonoscope [id number] was introduced through the anus and advanced [...] 10:40 AM Procedure Code(s): --- Professional --- 20950, Colonoscopy, flexible; diagnostic, including collection of specimen(s) by brushing or washing, when performed (separateprocedure) Diagnosis Code(s): --- Professional --- K57.30, Diverticulosis of large intestine without perforation orabscess without bleeding Z80.0, Family history of malignant neoplasm of digestive organs K64.9, Unspecified hemorrhoids CPT copyright 2019 [employer]. All rights reserved. The codes documented in this report are preliminary and upon fixture maker reviewmay be revised to meet current compliance requirements. Recognized by the [employer] for promoting quality in endoscopy us Tomás Farrell MD ENDOSCOPY PROCEDURES Final Re sult * Hepatitis panel, acute (03/23/2018 12:32 AM CDT) Hep A IgM Negative Negative [facility] ([facility]AN) Comment:Testing performed by : [facility], [address] [place] [address], [place]., [id number] Hep B core IgM Negative Negative [facility] (RYAN) Comment:Testing performed by : [facility], [address] [place] [address]., [id number] Hep C Ab Negative Negative [facility] (RYAN) Comment:Testing performed by : [facility], [address] [place] [address]., [id number] HepBsAg Negative Negative [facility] (RYAN) Comment:Testing performed by : [facility], [address] [place] [address]., [id number] Blood specimen (specimen) 03/23/2018 12:32 AM CDT 03/23/2018 3:23 PM CDT Narrative EVITA OCHOA (RYAN) - 03/23/2018 6:06 PM CDT us Sangeeta Art MD LAB MICROBIOLOGY - GENER AL ORDERABLES Final Result EVITA OCHOA ([place]) [facility] Department [place] [address] * DIABETES FOOT EXAM (05/18/2017) Diabetic Foot Exam Abnormal SCRIBED DM FOOT SITES SENSED 3 Comment:3:6 Historical Provider HEALTH MAINTENANCE Final Result from Last 3 Months or Most Recently Relevant to Health Maintenance Insurance MEDICARE [facility] [place] [address] MEDICARE [employer] SENIOR SUPPLEMENT [facility]NA [facility] [id number] MEDICARE AET[employer] SENIOR SUPPLEMENT Advance Directives For more information, please contact: [phone] * Full Code (Latest Code Status on File) Date Activated Date Inactivated Comments 11/01/2020 10:26 AM 11/01/2020 4:46 PM * Full Code Date Activated Date Inactivated Comments 11/01/2020 10:26 AM 11/01/2020 10:26 AM * Full Code Date Activated Date Inactivated Comments 09/12/2018 11:44 AM 09/16/2018 9:08 PM * Full Code Date Activated Date Inactivated Comments 03/23/2018 4:59 AM 03/30/2018 3:27 PM Care Teams Ux Design Manager Relationship Specialty Start Date End Date Brandee Ahn NP PCP - General Family Medicine 10/31/22 Michael Bedoya MD Surgeon General Surgery 03/30/18 Jag Andres MD Consulting Physician Infectious Diseases 03/30/18 Berenice Rowan MD Consulting Physician Neurology 03/30/18
--- OUTSIDE RECORDS SUMMARY | 2024-10-13 17:07 | XMS_ITS | Clinical Summary ---
Author Organization [facility] Administrative Offices Address [address] [place] [address] Care Team Providers Care Tip Stitcher Name Role Phone Haris Braden MD Primary Care Provider [phone] Allergies Active Allergy Reactions Criticality Noted Date Comments Codeine Other (See Comments) 02/24/2019 Patient states does not remember the reaction Vancomycin Rash Low 02/24/2019 Medications levothyroxine 50 mcg tablet Take 50 mcg by mouth daily at bedtime. Active insulin glargine (LANTUS) 100 unit/mL injection Inject 26 Units by subcutaneous injection daily with breakfast. Active escitalopram oxalate (LEXAPRO) 10 mg tablet Take 20 mg by mouth daily. Active Saccharomyces boulardii (FLORASTOR) 250 mg Capsule Take by mouth. Acti ve POTASSIUM-99 ORAL Take 99 mg by mouth daily. Active OTHERIndication s:loratadine 10 mg 1 time daily as needed. Provider please include Medication name, dose, route and frequency Active pravastatin (PRAVACHOL) 20 mg tablet Take 20 mg by mouth daily. Active ALPRAZolam (XANAX) 0.25 mg tablet Take 0.25 mg by mouth nightly as needed for Anxiety. Active oxyCODONE (ROXICODONE) 5 mg tabletIndicatio ns:Diverticulit is of large intestine without perforation or abscess without bleeding Take 1 Tablet (5 mg) by mouth every 4 hours as needed for Pain. Max Daily Amount: 30 mg 20 Tablet 4 Active Active Problems Problem Noted Date Diagnosed Date Type 2 diabetes mellitus wit hout complication, with long-term current use of insulin 05/22/2024 Intertrigo 05/22/2024 Acute diverticulitis 05/22/2024 ALICEA (dyspnea on exertion) 05/22/2024 Sepsis without acute organ dysfunction Moderate episode of recurrent major depressive d isorder 05/17/2024 Hyperlipidemia associated with type 2 diabetes m ellitus 07/11/2021 Class 3 severe obesity due t o excess calories with serious comorbidity and body mass index (BMI) of 40.0 to 44.9 in adult 09/24/2020 Psychophysiological insomnia 05/07/2020 Bilateral hearing loss 09/23/2018 Hypothyroidism 04/07/2018 Encounters Date Type Department Care Team Description 10/11/2024 External Device Data [facility] Provider, Abstract 09/27/2024 External Device Data [facility] Provider, Abstract 09/27/2024 External Device Data [facility] Provider, Abstract 09/07/2024 External Device Data [facility] Provider, Abstract 08/16/2024 External Device Data [facility] Provider, Abstract 07/26/2024 External Device Data [facility] Provider, Abstract 07/20/2024 External Device Data [facility] Provider, Abstract 07/19/2024 External Device Data [facility] Provider, Abstract from Last 3 Months Social History Tobacco Use Types Packs/Day Years Used Date Smoking Tobacco: Never Tobacco Cessation:Counseling Given: Not Answered Alcohol Use Standard Drinks/Week Comments Not Currently 0 (1 standard drink = 0.6 oz pur e alcohol) Feeling Safe Answer Date Recorded Are you in a relationship wi th someone who hurts you emotionally and/or physically? No 05/22/2024 Food Insecurity Answer Date Recorded Social/Environmental Concerns No concerns Transportation Needs Answer Date Record ed Social/Environmental Concerns No concerns Housing Stability Answer Date Recorded Social/Environmental Concerns No concerns Utility Needs Answer Date Recorded Social/Environmental Concerns No concerns Comments No Sex and Gender Information Value Date Recorded Sex Assigned at Not on file Legal Sex Female 3:56 PM CDT Gender Identity Not on file Sexual Orientation Not on file Last Filed Vital Signs Vital Sign Reading Time Taken Comments Blood Pressure 107/40 05/23/2024 8:09 PM MATERIALS DIRECTOR Pulse 65 05/23/2024 8:09 PM MATERIALS DIRECTOR Temperature 36.1 C (97 F) 05/23/2024 8:09 PM MATERIALS DIRECTOR Respiratory Rate 20 05/23/2024 8:09 PM MATERIALS DIRECTOR Oxygen Saturation 95% 05/23/2024 8:09 PM MATERIALS DIRECTOR Inhaled Oxygen Concentration - - Weight 131.6 kg (290 lb 1.6 oz) 05/22/2024 2:06 PM MATERIALS DIRECTOR Height 177.8 cm (5' 10 ) 05/22/2024 2:06 PM MATERIALS DIRECTOR Body Mass Index 41.63 05/22/2024 2:06 PM MATERIALS DIRECTOR Plan of Treatment Health Maintenance Due Date Last Done Comments DIABETES MICROALBUMIN ANNUAL SCREEN 02/04/1974 LDL CHOLESTEROL ANNUAL 02/04/1974 DTAP/TDAP/TD VACCINES (1 - Tdap) 02/04/1975 PNEUMOCOCCAL VACCINE 50+ YEA RS (1 of 2 - PCV) 02/04/1975 FIT-DNA Q 3 years 02/04/2001 FIT/FOBT Q 1 year 02/04/2001 Flex Sig/CT Colonography Q 5 years 02/04/2001 ZOSTER VACCINE (1 of 2) 02/04/2006 RSV VACCINE (60+ or ) (1 - Risk 60-74 years 1-dose series) 2016 OSTEOPOROSIS SCREENING 02/04/2021 BREAST CANCER SCREENING 05/02/2023 05/02/20 22, 05/28/2017, 05/29/2016, Additional history exists INFLUENZA VACCINE (#1) 2024 04/30/2018 DIABETES HBA1C Q 6 MONTHS 08/23/20242023, 04/29/2023, 03/11/2019 DIABETES ANNUAL FOOT EXAM 02/23/2025 02/24/2024 DIABETES ANNUAL RETINAL EXAM 02/23/2025 02/24/2024 COLORECTAL SCREENING 11/01/2030 11/01/2020, 11/01/2020, 03/03/2013 Colorectal Cancer Screening 11/01/2030 Insurance MEDICARE PART A AND B [employer] MEDICARE SUPPLEMENT Advance Directives For more information, please contact: [phone] * Full Code (Latest Code Status on File) Date Activated Date Inactivated Comments 05/22/2024 2:51 PM 05/24/2024 1:17 PM * Full Code Date Activated Date Inactivated Comments 03/29/2019 2:11 PM 03/29/2019 6:23 PM * Full Code Date Activated Date Inactivated Comments 03/29/2019 10:48 AM 03/29/2019 2:11 PM * Full Code Date Activated Date Inactivated Comments 03/29/2019 9:02 AM 03/29/2019 10:48 AM Care Teams Tip Stitcher Relationship Specialty Start Date End Date Haris Braden MD [place] [id number] PCP - General Family Practice 05/22/24
--- OUTSIDE RECORDS SUMMARY | 2024-10-13 17:07 | XMS_ITS | Encounter Summary ---
Author Organization [facility] Address [address] [place] [address] Care Team Providers Care Field Return Repairer Name Role Phone Haris Braden MD Primary Care Provider [phone] Encounter Details Date Type Department Care Team (Late st Contact Info) Description 10/11/2024 External Device Data [facility] Provider, Abstract NO ADDRESS ON FILE Social History Tobacco Use Types Packs/Day Years Used Date Smoking Tobacco: Never Alcohol Use Standard Drinks/Week Comments Not Currently [...] on file Sexual Orientation Not on file documented as of this encounter Plan of Treatment Not on file documented as of this encounter Visit Diagnoses Not on filedocumented in this encounter Care Teams Field Return Repairer Relationship Specialty Start Date End Date [place] [id number] PCP - General Family Practice 05/22/24 documented as of this encounter
[2024-10-13] MEDS: TETANUS,DIPHTHERIA,AC PERTUSSIS ADULT (0.5 ML) BOOSTRIX IM (17:29)
== END 2024-10-13 17:45 | disposition home or self-care (01) ==
PROVIDERS: Emergency Provider Registered Nurse; PCP Hospitalist
DX: S00.12XA Contusion of left eyelid and periocular area, initial encounter (principal); S00.11XA Contusion of right eyelid and periocular area, initial encounter; S02.2XXA Fracture of nasal bones, initial encounter for closed fracture; W01.198A Fall on same level from slipping, tripping and stumbling with subsequent striking against other object, initial encounter; Z23 Encounter for immunization; E11.9 Type 2 diabetes mellitus without complications; Z79.4 Long term (current) use of insulin; E03.9 Hypothyroidism, unspecified; E78.5 Hyperlipidemia, unspecified
CPT/HCPCS: 70160; 90471; 90715; 99213; G0463